=== PATIENT | male | born 1935 | race Caucasian/White ===

== ENCOUNTER 2017-07-27 07:36 | Emergency (ER) | payer MEDICARE ==
[~2017-07-27] VITALS: Ht 177.8 cm; Wt 95.2 kg
[~2017-07-27 07:36] MED LIST: ALBU3IS INH; ALBU90OI6; AMLO10 PO; AMLO5 PO; ASPI81CH PO; ATOR40TA PO; BUME2 PO; CARV25; CARV25 PO; CARV6.25 PO; CHOL10002 PO; CIPR500 PO; CLARITIN10 MG PO; CLON.1 PO; CLOP75 PO; CYAN1000 PO; DIAZ5 PO; FEBU40TA PO; FLUNISOLIDE MC; FURO40 PO; HYDCHL12.5 PO; LEVSOD50 PO; LORA1 PO; LOSA50 PO; ONDA8 PO; OXYACE5T PO; PARI1 PO; POTA10T PO; POTCHL10ER PO; Robaxin500 MG PO; TAMS.4ER PO; TIOT18; VALTURNA; VITAMIN D31000 UNIT PO; ZOLP5 PO
== END 2017-07-27 09:00 | disposition home or self-care (01) ==
LOC: ER 07:36
DX: L02.212 Cutaneous abscess of back [any part, except buttock and flank] (principal); Z88.5 Allergy status to narcotic agent; Z79.899 Other long term (current) drug therapy; Z79.82 Long term (current) use of aspirin; E03.9 Hypothyroidism, unspecified; I10 Essential (primary) hypertension; E78.5 Hyperlipidemia, unspecified
CPT/HCPCS: 10061; 99283

== ENCOUNTER 2017-07-28 21:01 | Emergency (ER) | payer MEDICARE ==
[~2017-07-28] VITALS: Ht 177.8 cm; Wt 95.2 kg
== END 2017-07-28 23:27 | disposition home or self-care (01) ==
LOC: ER 21:01
DX: Z48.817 Encounter for surgical aftercare following surgery on the skin and subcutaneous tissue (principal); Z88.5 Allergy status to narcotic agent; Z79.899 Other long term (current) drug therapy; Z79.82 Long term (current) use of aspirin; E03.9 Hypothyroidism, unspecified; I10 Essential (primary) hypertension; E78.5 Hyperlipidemia, unspecified
CPT/HCPCS: 99281

== ENCOUNTER 2017-08-28 11:46 | Emergency (ER) | payer MEDICARE ==
[~2017-08-28] VITALS: Ht 177.8 cm; Wt 95.2 kg
[2017-08-28] MEDS ORDERED: Keflex500 MG PO (12:28)
== END 2017-08-28 12:37 | disposition home or self-care (01) ==
LOC: ER 11:46
DX: L02.212 Cutaneous abscess of back [any part, except buttock and flank] (principal); L03.312 Cellulitis of back [any part except buttock and flank]; I25.10 Atherosclerotic heart disease of native coronary artery without angina pectoris; E03.9 Hypothyroidism, unspecified; I10 Essential (primary) hypertension; E78.5 Hyperlipidemia, unspecified; I25.2 Old myocardial infarction; Z88.5 Allergy status to narcotic agent; Z79.899 Other long term (current) drug therapy; Z79.01 Long term (current) use of anticoagulants; Z79.82 Long term (current) use of aspirin
CPT/HCPCS: 99283

== ENCOUNTER 2018-03-21 10:55 | Day surgery (SDC) | payer MEDICARE ==
[~2018-03-21] VITALS: Ht 172.7 cm; Wt 96.6 kg
[~2018-03-21 10:55] MED LIST changes: +ACET500 PO; -ALBU90OI6; +ALBU90OI6 INH; +DIPH50 PO; +FLONASE ALLERG9.9 ML; +Keflex500 MG PO; +LORATADINE PO; +METO100ER PO; +Uloric80 MG PO; +Ventolin5 MG/1 ML NEB; +XARELTO10 MG PO; +[UNRECOGNIZED DRUG - OTHER]
--- NOTE | 2018-03-21 12:21 | NUR ---
PT ARRIVED TO DAY SURGERY FOR OUTPATIENT UPPER ENDOSCOPY/COLONSCOPY. WHEN VITAL SIGNS TAKE, NOTED TO HAVE A FAST HR. SPOKE WITH DR ESCALANTE, ANESTHESIOLOGIST WHO WILL BE ASSISTING WITH PROCEDURE. PER DR ESCALANTE, DO A 12 LEAD EKG. EKG WAS OBTAINED, A-FIB WITH RVR. DR ESCALANTE NOTIFIED AND PER DR ESCALANTE WOULD LIKE TO CANCEL PROCEDURE. REQUESTED FOR DR CASTRO TO BE AWARE OF CANCELLATION. DR CASTRO CAME BY TO SPEAK TO PATIENT AND . DISCHARGE HOME.
== END 2018-03-21 18:09 | disposition home or self-care (01) ==
LOC: SURS 10:55 → ORSCMMR 10:55 → SURS 10:57 → ORSCMMR 12:30 → ORD 12:30 → ORSCMMR 18:09
DX: K92.1 Melena (principal); Z53.9 Procedure and treatment not carried out, unspecified reason; I10 Essential (primary) hypertension; I25.10 Atherosclerotic heart disease of native coronary artery without angina pectoris; I48.91 Unspecified atrial fibrillation; Z79.01 Long term (current) use of anticoagulants; Z79.899 Other long term (current) drug therapy; G47.33 Obstructive sleep apnea (adult) (pediatric)
CPT/HCPCS: 93005; 93010; J7120

== ENCOUNTER 2018-04-01 08:16 | Emergency (ER) | payer MEDICARE | END 2018-04-01 10:48 | disposition left against medical advice (07) | LOC: ER 08:16 | DX: Z53.21 Procedure and treatment not carried out due to patient leaving prior to being seen by health care provider (principal) ==

== ENCOUNTER 2018-04-18 08:18 | Inpatient (IN) | payer MEDICARE ==
[~2018-04-18] VITALS: Ht 177.8 cm; Wt 95.7 kg
[~2018-04-18 08:18] MED LIST changes: -ALBU90OI6 INH; -BUME2 PO; -FLONASE ALLERG9.9 ML; -LEVSOD50 PO; -POTA10T PO; -VITAMIN D31000 UNIT PO
[2018-04-18 09:00] LABS: Chloride (POC) 103 mmol/L (98-108); Creatinine (POC) 2.2 mg/dL (0.8-1.3); Glucose (ISTAT POC) 159 mg/dL (70-99); Hemoglobin (POC) 8.5 g/dL (13.5-17.5); Potassium (POC) 4.1 mmol/L (3.5-5.5); Sodium (POC) 140 mmol/L (135-148); Total CO2 (POC) 25 mmol/L (21-32)
[2018-04-18 09:15] LABS: BASOPHILS ABSOLUTE AUTO 0.06 K/mm3 (0.00-0.23); BASOPHILS PERCENT AUTO 1 % (0-2); EOSINOPHILS ABSOLUTE AUTO 0.15 K/mm3 (0.00-0.68); EOSINOPHILS PERCENT AUTO 2 % (0-6); Hematocrit 28.1 % (37.0-53.0); Hemoglobin 7.9 g/dL (13.5-17.5); IMMATURE GRAN ABSOLUTE AUTO 0.04 K/mm3 (0.00-0.10); IMMATURE GRAN PERCENT AUTO 0 % (0-1); LYMPHOCYTES ABSOLUTE AUTO 1.37 K/mm3 (0.84-5.20); LYMPHOCYTES PERCENT AUTO 14 % (21-46); MONOCYTES ABSOLUTE AUTO 0.92 K/mm3 (0.16-1.47); MONOCYTES PERCENT AUTO 9 % (4-13); Mean Corpuscular HGB 24.9 pg (26.0-34.0); Mean Corpuscular HGB Conc 28.1 g/dL (31.5-36.5); Mean Corpuscular Volume 89 fL (80-100); Mean Platelet Volume 9.5 fL (9.1-12.4); NEUTROPHILS ABSOLUTE AUTO 7.26 K/mm3 (1.96-9.15); NEUTROPHILS PERCENT AUTO 74 % (41-73); Platelet Count 326 K/mm3 (150-400); RDW Coefficient Variation 16.9 % (11.7-14.2); RDW Standard Deviation 55.2 fL (35.1-46.3); Red Blood Cell Count 3.17 M/mm3 (4.30-5.90)
[2018-04-18 09:28] LABS: International Normalized Ratio 1.19; Prothrombin Time Results 12.4 Sec (9.7-11.5)
[2018-04-18 09:35] LABS: Albumin, Blood 3.2 g/dL (3.4-5.0); Bilirubin, Total 0.5 mg/dL (0.1-1.0); Bun/Creatinine Ratio 17.5 (12.0-20.0); Calcium, Blood 8.2 mg/dL (8.5-10.1); Creatinine, Blood 2.06 mg/dL (0.60-1.20); Globulin, Blood 3.3 g/dL (2.2-4.0); Potassium, Blood 4.2 mmol/L (3.5-5.5); Total Protein, Blood 6.5 g/dL (6.4-8.2)
[2018-04-18] MEDS ORDERED: FINA5 PO ×2 (10:37→12:06)
[2018-04-18 11:24] LABS: Source, Urine Clean Catch
[2018-04-18 11:27] LABS: Bilirubin, Urine Neg (Neg); Blood, Urine Neg (Neg); Glucose Qualitative, Urine Neg (Neg); Ketones, Urine Neg (Neg); Leukocyte Esterase, Urine 1+ (Neg); Nitrite, Urine Neg (Neg); Protein, Urine 2+ (Neg); Specific Gravity, Urine 1.015 (1.003-1.022); Urobilinogen, Urine NORM (Normal)
[2018-04-18 11:42] LABS: Appearance, Urine Clear (Clear); Bacteria Rare /hpf; Color, Urine Yellow (P-Yellow); Red Blood Cells, Urine Not Seen /hpf (0-2); Squamous Epithelial Cells Not Seen /hpf (Few)
[2018-04-18] MEDS ORDERED: METO100ER PO (12:03)
[2018-04-18] MEDS ORDERED: ABAT250V (12:04)
[2018-04-18] MEDS ORDERED: TAMS.4ER PO (12:04)
[2018-04-18] MEDS ORDERED: XARELTO20 MG PO (12:05)
[2018-04-18] MEDS ORDERED: FEBU40TA PO (12:05)
[2018-04-18] MEDS ORDERED: LEVSOD50 PO (12:28)
[2018-04-18] MEDS ORDERED: CLOP75 PO (12:28)
[2018-04-18] MEDS ORDERED: VITAMIN D31000 UNIT PO (12:28)
[2018-04-18] MEDS ORDERED: LOSA50 PO (12:28)
[2018-04-18] MEDS ORDERED: POTA10T PO (12:28)
[2018-04-18] MEDS ORDERED: ATOR40TA PO (12:28)
[2018-04-18] MEDS ORDERED: FLONASE ALLERG9.9 ML (12:30)
[2018-04-18] MEDS ORDERED: BUME2 PO (12:30)
[2018-04-18] MEDS ORDERED: ALBU90OI6 INH (12:30)
[2018-04-18] MEDS ORDERED: Loratadine10 MG PO (12:32)
[2018-04-18] MEDS ORDERED: PANT40 PO (12:32)
--- NOTE | 2018-04-18 19:19 | NUR ---
Initial Visit: Palliative Care Consult for goals of care. Pt is A&Ox4 and denies pain at this time. He denies dyspnea at this time but reports SOB with exertion. Pt also denies anxiety and depression at thist time. Engaged in therapeutic conversation regarding goals of care. Pt reports that he lives at home with his . His adult children live in different states. Pt reports that he does not practice any particular pentecostal. Pt is orginally from [place]. He also served in the [employer]. He reports that he is independent at home but has been experiencing increased significant balance issues recently and has multiple falls recently. He also indicates that he does not understand his need for oxygen use and has reequired oxygen at home as well. Educated Pt on disease process with V/U made by Pt. Discussed options to have caregivers to come into home for extra support and Pt denies need. Discussed AD/POLST with Pt and he also denies need. Pt reports no concerns at this time. Will remain available
--- NOTE | 2018-04-18 19:36 | NUR ---
Arrival: Assumed care of pt at approx 1835. VSS. In no apparent sign of distress. Pt is A&Ox4. Calling appropriately and repositions self. Denies any pain. Pt pale and has dusky lips. Breathing e/u on 5L O2 NC. Lungs clear and pt denies any SOB or cough. Tele shows SIT in the 120's. Denies any CP. No obvious skin injuries noted. Pt denies any n/t or n/v but c/o some mild lower abd tenderness w/palpation. Pt NPO at this time. Report given to junior Packer.
[2018-04-18] MEDS ORDERED: CYAN500 PO (22:38)
--- NOTE | 2018-04-19 03:52 | NUR ---
PCU NIGHTSHIFT ASSUMED CARE OF PT APPROX 1900. PT A&O X4. ASSESSMENT COMPLETED. VITAL SIGNS STABLE, ALTHOUGH HEART RHYTHM A. FIB WITH HEART RATE IN 130'S-140'S AT THIS TIME PRN IV METROPOL GIVEN PER EMAR TO HELP WITH THIS. PT ABDOMEN MIL DISTENTION BUT SOFT. PT DENIES ANY DIZZINESS, LIGHTHEADEDNESS OR NAUSEA OR VOMITING. AT THIS TIME. RT LOW LOBE LUNG SOUNDS DIMINISHED, THE REST CLEAR. PT ON 4L OXYGEN VIA N.C. WITH SATS IN 90'S. BED IN LOW POSITION, BED ALARM ON, CALL LIGHT IN REACH AND PT DENIES ANY NEEDS AT THIS TIME
[2018-04-19 04:14] LABS: BASOPHILS ABSOLUTE AUTO 0.07 K/mm3 (0.00-0.23); BASOPHILS PERCENT AUTO 1 % (0-2); EOSINOPHILS ABSOLUTE AUTO 0.16 K/mm3 (0.00-0.68); EOSINOPHILS PERCENT AUTO 2 % (0-6); Hematocrit 23.9 % (37.0-53.0); Hemoglobin 6.9 g/dL (13.5-17.5); IMMATURE GRAN ABSOLUTE AUTO 0.02 K/mm3 (0.00-0.10); IMMATURE GRAN PERCENT AUTO 0 % (0-1); LYMPHOCYTES ABSOLUTE AUTO 1.21 K/mm3 (0.84-5.20); LYMPHOCYTES PERCENT AUTO 16 % (21-46); MONOCYTES PERCENT AUTO 11 % (4-13); Mean Corpuscular HGB 25.2 pg (26.0-34.0); Mean Corpuscular HGB Conc 28.9 g/dL (31.5-36.5); Mean Corpuscular Volume 87 fL (80-100); Mean Platelet Volume 9.4 fL (9.1-12.4); NEUTROPHILS ABSOLUTE AUTO 5.28 K/mm3 (1.96-9.15); NEUTROPHILS PERCENT AUTO 70 % (41-73); Platelet Count 234 K/mm3 (150-400); RDW Coefficient Variation 17.1 % (11.7-14.2); RDW Standard Deviation 54.2 fL (35.1-46.3); Red Blood Cell Count 2.74 M/mm3 (4.30-5.90); White Blood Cell Count 7.54 K/mm3 (4.00-11.30)
[2018-04-19 04:33] LABS: Albumin, Blood 2.7 g/dL (3.4-5.0); Bilirubin, Total 0.8 mg/dL (0.1-1.0); Bun/Creatinine Ratio 16.9 (12.0-20.0); Calcium, Blood 7.9 mg/dL (8.5-10.1); Creatinine, Blood 1.83 mg/dL (0.60-1.20); Globulin, Blood 2.8 g/dL (2.2-4.0); Potassium, Blood 3.9 mmol/L (3.5-5.5); Total Protein, Blood 5.5 g/dL (6.4-8.2)
--- NOTE | 2018-04-19 05:41 | NUR ---
NOTE MORNING LABS RECIEVED. PT HBG 6.9. NOTIFIED WOOD HEEL FLAP INSERTER PHYSICIAN. RECIEVED ORDERS TO TRANSFUSE ONE UNIT PRB. FOLLOWED PROTOCOL FOR STARTING PRB'S. ASSESSMENT PT. VITAL SIGNS STABLE. HEART RATE AVERAGING 130'S LUNG SOUNDS UNCHANGED FROM START OF SHIFT. WILL CONTINUE TO MONITOR PER PROTOCOL.
--- NOTE | 2018-04-19 05:55 | NUR ---
SHIFT SUMMARY PT PLEASANT, COOPERATIVE, AND USES CALL LIGHT APPROPRIATELY. PT REMAINS A&O X4. VITAL SIGNS STABLE. ALTHOUGH HEART RHYTHM REMAINS A. FIB. WITH HEART RATE RANGING FROM 100'S-140'S. PRN IV METROPOLOL GIVEN FOR HEART RATE AVERAGING ABOVE 120'S PER ORDERS. GAVE TWO DOSE THIS SHIFT. EACH TIME LOWERED PT HEART RATE TO AVERAGING 100'S-120'S. ASSESSMENT FINDINGS REMAIN UNCHANGED FROM START OF SHIFT. 4L OXYGEN VIA N.C. IN PLACE WITH SATS IN 90'S. PT REPORTED HE WAS UP TO BATHROOM WITH ASSISTANCE FROM PEER STAFF AND TOLERATED WELL. NO DIZZINESS OR LIGHTHEADEDNESS WITH THIS. BEGUN PRBC'S APPROX. 0538. MONITOR PT PER PROTOCOL. VITAL SIGNS REMAIN STABLE. BED IN LOW POSITION, CALL LIGHT IN REACH AND PT DENIES ANY NEEDS AT THIS TIME. WILL CONTINUE TO MONITOR UNTIL HANDOFF TO JAY MINER.
[2018-04-19 10:36] LABS: Hematocrit 27.5 % (37.0-53.0); Hemoglobin 8.2 g/dL (13.5-17.5); Mean Corpuscular HGB 25.4 pg (26.0-34.0); Mean Corpuscular HGB Conc 29.8 g/dL (31.5-36.5); Mean Corpuscular Volume 85 fL (80-100); Mean Platelet Volume 9.3 fL (9.1-12.4); Platelet Count 243 K/mm3 (150-400); RDW Coefficient Variation 16.5 % (11.7-14.2); RDW Standard Deviation 51.9 fL (35.1-46.3); Red Blood Cell Count 3.23 M/mm3 (4.30-5.90); White Blood Cell Count 6.97 K/mm3 (4.00-11.30)
--- NOTE | 2018-04-19 13:52 | NUR ---
History, Chart, Medications and Allergies reviewed before start of procedure. Patient confirms NPO status and agrees with scheduled surgery.
--- NOTE | 2018-04-19 15:13 | NUR ---
pt returned to room after egd, report was one clip, pt awake a/ox3, able to drink without diff, vs stable, pt has no complaints. call light in reach. continues on cardizem gtt, will continue to monitor.
--- NOTE | 2018-04-19 17:49 | NUR ---
pt vs stable. sats are 94% on 4 liters 02 via n/c, heart rate in the 80's, call to Dr. Jean, he ordered oral cardizem at 60mg tid. no furhter changes this shift. call light in reach.
--- NOTE | 2018-04-19 18:41 | NUR ---
DR. ARNDT WAS IN TO SEE PT. HE WILL DO A COLONOSCOPY TOMORROW. WILL START CLEAN OUT TONIGHT. PT STATES HE HAS DONE THIS BEFORE, AND KNOWS WHAT TO EXPECT. CALL LIGHT IN REACH.
[2018-04-20 04:06] LABS: BASOPHILS ABSOLUTE AUTO 0.04 K/mm3 (0.00-0.23); BASOPHILS PERCENT AUTO 1 % (0-2); EOSINOPHILS ABSOLUTE AUTO 0.16 K/mm3 (0.00-0.68); EOSINOPHILS PERCENT AUTO 2 % (0-6); Hematocrit 27.2 % (37.0-53.0); IMMATURE GRAN ABSOLUTE AUTO 0.02 K/mm3 (0.00-0.10); IMMATURE GRAN PERCENT AUTO 0 % (0-1); LYMPHOCYTES ABSOLUTE AUTO 1.17 K/mm3 (0.84-5.20); LYMPHOCYTES PERCENT AUTO 16 % (21-46); MONOCYTES ABSOLUTE AUTO 0.89 K/mm3 (0.16-1.47); MONOCYTES PERCENT AUTO 12 % (4-13); Mean Corpuscular HGB 25.2 pg (26.0-34.0); Mean Corpuscular HGB Conc 29.4 g/dL (31.5-36.5); Mean Corpuscular Volume 86 fL (80-100); Mean Platelet Volume 9.4 fL (9.1-12.4); NEUTROPHILS ABSOLUTE AUTO 5.23 K/mm3 (1.96-9.15); NEUTROPHILS PERCENT AUTO 70 % (41-73); NRBC ABSOLUTE 0.02 K/mm3 (0.00-0.02); NRBC Auto 0.3 /100 WBC (0.0-0.2); Platelet Count 247 K/mm3 (150-400); RDW Coefficient Variation 16.7 % (11.7-14.2); RDW Standard Deviation 52.4 fL (35.1-46.3); Red Blood Cell Count 3.17 M/mm3 (4.30-5.90); White Blood Cell Count 7.51 K/mm3 (4.00-11.30)
[2018-04-20 04:24] LABS: Bun/Creatinine Ratio 14.9 (12.0-20.0); Calcium, Blood 8.1 mg/dL (8.5-10.1); Creatinine, Blood 1.75 mg/dL (0.60-1.20); Potassium, Blood 3.5 mmol/L (3.5-5.5)
--- NOTE | 2018-04-20 06:25 | NUR ---
SHIFT SUMMARY PT HAS BEEN ALERT AND ORIENTED X 3 THROUGHOUT SHIFT. HE HAS BEEN PLEASANT AND COOPERATIVE WITH VITALS AND ASSESSMENTS. PT DID REFUSE TO CONTINUE DRINKING HIS GOLYTELY AT APPROX 0300 BUT SAID HE WOULD RESUME AT 0600. HE HAS BEEN BEING PREPPED SINCE LAST NIGHT AND HIS STOOL HAS CLEARED SOME AND REMAINS LIQUID AT THIS TIME. PT HAS BEEN INDEPENDENT IN THE ROOM AND HIS GAIT WAS OBSERVED TO BE STEADY AND WELL BALANCED. PT DENIED ANY UNMET NEEDS, SLEPT WELL AFTER HE PAUSED HIS GOLYTELY AND WAS ABLE TO APPROPRIATELY USE HIS CALL LIGHT TO MAKE NEEDS KNOWN. PT HAS NON SLIP SOCKS ON FOR SAFETY AND HIS BED HAS BEEN IN THE LOWEST POSITION. HE HAS TOLERATED GO LYTELY DURING THE SHIFT. NO ACUTE CHNAGES HAVE BEEN OBSERVED TO PATIENT VITALS OR LOC. PT WILL CONTINUE TO BE MONITORED UNTIL HANDOFF TO DAYSHIFT RN.
--- NOTE | 2018-04-20 14:12 | NUR ---
PT TAKEN TO DAY SURGERY FOR PROCEDURE. WILL AWAIT RETURN.
--- NOTE | 2018-04-20 14:17 | NUR ---
PT TRANSPORTED TO [facility]. AGREES WITH PLANNED PROCEDURE. LUNG SOUNDS CLEAR.
--- NOTE | 2018-04-20 16:00 | NUR ---
PT RETURNED FROM DAY SURGERY. REPORT RECIEVED FROM CRISTY MINER. PT ABLE TO AMBULATE TO BED. WILL CONTINUE TO MONITOR CLOSELY.
--- NOTE | 2018-04-20 18:35 | NUR ---
SHIFT SUMMARY PT ALERT AND ORIENTED. VS STABLE. 02 SATS HAVE BEEN >90% ON RA. PT HAD COLONOSCOPY THIS SHIFT. VS STABLE AFTER RECOVERY. PT SITTING UP EATING DINNER. NO BM SINCE COLONOSCOPY. PT ABLE TO AMBULATE INDEPENDENTLY TO BATHROOM NEEDED. AT THE BEDSIDE. WILL CONTINUE TO MONITOR AND REPORT TO ONCOMING RN. CALL LIGHT IN REACH.
--- NOTE | 2018-04-20 19:15 | NUR ---
PM NOTE. ASSUMED CARE OF PT APROX 1900, PT IS A&Ox4 AND IND IN THE ROOM. PT WAS ADMITTED DUE TO GI BLEED, HE HAD HIS COLONOSCOPY TODAY AND HAS NO BLACK/TARRY STOOLS, GI/RECTAL BLEEDING, N/V OR SOB. PT IS CURRENTLY ON RA W/STATS AT 90%. TELE INTACT, AFIB IN THE 80'S PER HEALTHCARE ANALYST, PT'S BP 118/77, NO EDEMA NOTED ON ASSESSMENT. PT'S L/S CLEAR T/O DIM IN THE BASES. BT PRESENT AND HYPOACTIVE, ABD IS SOFT AND NONTENDER TO PALP. PT IS HOPING TO D/C IN THE AM. CALL LIGHT IN REACH, BED IS LOCKED AND LOW WILL CONTINUE TO MONITOR.
[2018-04-21 03:46] LABS: BASOPHILS ABSOLUTE AUTO 0.06 K/mm3 (0.00-0.23); BASOPHILS PERCENT AUTO 1 % (0-2); EOSINOPHILS ABSOLUTE AUTO 0.14 K/mm3 (0.00-0.68); EOSINOPHILS PERCENT AUTO 2 % (0-6); Hematocrit 26.7 % (37.0-53.0); Hemoglobin 7.8 g/dL (13.5-17.5); IMMATURE GRAN ABSOLUTE AUTO 0.01 K/mm3 (0.00-0.10); IMMATURE GRAN PERCENT AUTO 0 % (0-1); LYMPHOCYTES ABSOLUTE AUTO 1.39 K/mm3 (0.84-5.20); LYMPHOCYTES PERCENT AUTO 21 % (21-46); MONOCYTES ABSOLUTE AUTO 0.74 K/mm3 (0.16-1.47); MONOCYTES PERCENT AUTO 11 % (4-13); Mean Corpuscular HGB 25.2 pg (26.0-34.0); Mean Corpuscular HGB Conc 29.2 g/dL (31.5-36.5); Mean Corpuscular Volume 86 fL (80-100); Mean Platelet Volume 9.4 fL (9.1-12.4); NEUTROPHILS ABSOLUTE AUTO 4.44 K/mm3 (1.96-9.15); NEUTROPHILS PERCENT AUTO 66 % (41-73); Platelet Count 232 K/mm3 (150-400); RDW Coefficient Variation 17.2 % (11.7-14.2); RDW Standard Deviation 53.7 fL (35.1-46.3); Red Blood Cell Count 3.09 M/mm3 (4.30-5.90); White Blood Cell Count 6.78 K/mm3 (4.00-11.30)
[2018-04-21 04:06] LABS: Albumin, Blood 2.9 g/dL (3.4-5.0); Bilirubin, Total 0.8 mg/dL (0.1-1.0); Bun/Creatinine Ratio 9.8 (12.0-20.0); Creatinine, Blood 1.84 mg/dL (0.60-1.20); Globulin, Blood 2.8 g/dL (2.2-4.0); Potassium, Blood 3.2 mmol/L (3.5-5.5); Total Protein, Blood 5.7 g/dL (6.4-8.2)
--- NOTE | 2018-04-21 05:49 | NUR ---
SHIFT SUMMARY. NO ACUTE CHANGES NOTED THIS SHIFT. PT'S VS HAVE BEEN STABLE T/O SHIFT. PT DENIES ANY CHEST PAIN/PRESSURE, N/V OR SOB. PT HAS BEEN IND TO THE BATHRROM AND IN THE ROOM. PT IS VERY HOPFUL TO D/C HOME THIS AM. CALL LIGHT IN REACH, BED IS LOCKED AND LOW WILL CONTINUE TO MONITOR UNTIL REPORT IS GIVEN TO ONCOMING RN.
[2018-04-21] MEDS ORDERED: DILT60 PO (09:47)
--- NOTE | 2018-04-21 10:32 | NUR ---
04/21/18 1032 Yves Miner Patient to ENDO 1History, Chart, Medications and Allergies reviewed before start of procedure.MONITOR INTACT WITH CONTINUOUS PULSE OXIMETRY AND INTERMITTENT BP.O2 VIA N/C INTACT THROUGHOUT SEDATION/PROCEDURE.See Anesthesia record PER DR DIETZ
--- NOTE | 2018-04-21 13:25 | NUR ---
PT ALERT AND ORIENTED. TRANSFUSION COMPLETE. VS STABLE. ORDERS FOR DISCHARGE. DISCHARGE INSTRUCTIONS GIVEN TO PT AND . ALL QUESTIONS ANSWERED. EDUCATION PROVIDED ON NEW MEDICATION. IVS REMOVED AND INTACT. PT TAKEN OUT BY WHEELCHAIR.
== END 2018-04-21 13:20 | disposition home or self-care (01) | DRG 378 ==
LOC: ER 08:18 → PCU 08:19 → ERHOLD 08:19 → PCU 18:23
PROVIDERS: Emergency Medicine; Internal Medicine Gastroenterology; ADMIT Family Medicine
PROC: 30233N1 Transfusion of Nonautologous Red Blood Cells into Peripheral Vein, Percutaneous Approach (ICD-10-PCS; 2018-04-19)
PROC: 0W3P8ZZ Control Bleeding in Gastrointestinal Tract, Via Natural or Artificial Opening Endoscopic (ICD-10-PCS; principal; 2018-04-19 14:00)
PROC: 0DBL8ZX Excision of Transverse Colon, Via Natural or Artificial Opening Endoscopic, Diagnostic (ICD-10-PCS; 2018-04-20 14:30)
DX: K92.2 Gastrointestinal hemorrhage, unspecified (principal); I13.0 Hypertensive heart and chronic kidney disease with heart failure and stage 1 through stage 4 chronic kidney disease, or unspecified chronic kidney disease; I50.32 Chronic diastolic (congestive) heart failure; I25.10 Atherosclerotic heart disease of native coronary artery without angina pectoris; I25.2 Old myocardial infarction; E03.9 Hypothyroidism, unspecified; E78.5 Hyperlipidemia, unspecified; N40.0 Benign prostatic hyperplasia without lower urinary tract symptoms; Z90.79 Acquired absence of other genital organ(s); M10.9 Gout, unspecified; Z87.891 Personal history of nicotine dependence; N18.3 Chronic kidney disease, stage 3 (moderate); I48.2 Chronic atrial fibrillation; J44.9 Chronic obstructive pulmonary disease, unspecified; Z99.81 Dependence on supplemental oxygen; I25.5 Ischemic cardiomyopathy; G47.33 Obstructive sleep apnea (adult) (pediatric); Z85.51 Personal history of malignant neoplasm of bladder; K44.9 Diaphragmatic hernia without obstruction or gangrene; D12.3 Benign neoplasm of transverse colon; K64.8 Other hemorrhoids; R04.0 Epistaxis
CPT/HCPCS: 36415; 36430; 80047; 80048; 80053; 81001; 83880; 84484; 85014; 85025; 85027; 85610; 86850; 86900; 86901; 86923; 88305; 93005; 93010; 94640; 94760; 96361; 96374; 96375; 96376; 99285-25; C9113; G0378; J7030; J7120; P9016

== ENCOUNTER 2018-05-10 04:16 | Emergency (ER) | payer MEDICARE ==
[~2018-05-10] VITALS: Ht 177.8 cm; Wt 95.2 kg
[~2018-05-10 04:16] MED LIST changes: +ABAT250V; +ALBU90OI6 INH; +BUME2 PO; +CYAN500 PO; +DILT60 PO; +FINA5 PO; +FLONASE ALLERG9.9 ML; +LEVSOD50 PO; +Loratadine10 MG PO; +PANT40 PO; +POTA10T PO; +VITAMIN D31000 UNIT PO; +XARELTO20 MG PO
[2018-05-10] MEDS ORDERED: CEPH500 PO (05:57)
== END 2018-05-10 06:22 | disposition home or self-care (01) ==
LOC: ER 04:16
DX: J02.9 Acute pharyngitis, unspecified (principal); Z79.899 Other long term (current) drug therapy; Z87.891 Personal history of nicotine dependence
CPT/HCPCS: 87081; 87430; 99283; J1100

== ENCOUNTER 2021-03-08 12:21 | Emergency (ER) | payer OTHER ==
[~2021-03-08] VITALS: Ht 177.8 cm; Wt 99.8 kg
[~2021-03-08 12:21] MED LIST changes: +CEPH500 PO
[2021-03-08] MEDS ORDERED: METSALMENC TOP (15:42)
[2021-03-08] MEDS ORDERED: LIDO700A20 TOP (15:42)
[2021-03-08] MEDS ORDERED: OXYC5 PO (15:42)
== END 2021-03-08 15:40 | disposition home or self-care (01) ==
LOC: ER 12:21
DX: S09.90XA Unspecified injury of head, initial encounter (principal); S22.32XA Fracture of one rib, left side, initial encounter for closed fracture; I25.2 Old myocardial infarction; E03.9 Hypothyroidism, unspecified; J44.9 Chronic obstructive pulmonary disease, unspecified; E78.5 Hyperlipidemia, unspecified; Z87.891 Personal history of nicotine dependence; Z79.899 Other long term (current) drug therapy; W19.XXXA Unspecified fall, initial encounter
CPT/HCPCS: 70450; 71101; 73000; 99284-25; A9270

== ENCOUNTER 2021-05-01 11:02 | Emergency (ER) | payer MEDICARE, OTHER ==
[~2021-05-01] VITALS: Ht 177.8 cm; Wt 95.2 kg
[~2021-05-01 11:02] MED LIST changes: +LIDO700A20 TOP; +METSALMENC TOP; +OXYC5 PO
[2021-05-01 11:40] LABS: BASOPHILS ABSOLUTE AUTO 0.06 K/mm3 (0.00-0.23); BASOPHILS PERCENT AUTO 1 % (0-2); EOSINOPHILS ABSOLUTE AUTO 0.16 K/mm3 (0.00-0.68); EOSINOPHILS PERCENT AUTO 2 % (0-6); Hematocrit 40.8 % (37.0-53.0); Hemoglobin 13.3 g/dL (13.5-17.5); IMMATURE GRAN ABSOLUTE AUTO 0.04 K/mm3 (0.00-0.10); IMMATURE GRAN PERCENT AUTO 1 % (0-1); LYMPHOCYTES ABSOLUTE AUTO 1.36 K/mm3 (0.84-5.20); LYMPHOCYTES PERCENT AUTO 17 % (21-46); MONOCYTES ABSOLUTE AUTO 0.68 K/mm3 (0.16-1.47); MONOCYTES PERCENT AUTO 8 % (4-13); Mean Corpuscular HGB 31.6 pg (26.0-34.0); Mean Corpuscular HGB Conc 32.6 g/dL (31.5-36.5); Mean Corpuscular Volume 97 fL (80-100); Mean Platelet Volume 9.7 fL (9.1-12.4); NEUTROPHILS ABSOLUTE AUTO 5.84 K/mm3 (1.96-9.15); NEUTROPHILS PERCENT AUTO 72 % (41-73); Platelet Count 229 K/mm3 (150-400); RDW Coefficient Variation 14.3 % (11.7-14.2); RDW Standard Deviation 51.3 fL (35.1-46.3); Red Blood Cell Count 4.21 M/mm3 (4.30-5.90); White Blood Cell Count 8.14 K/mm3 (4.00-11.30)
[2021-05-01 12:01] LABS: Albumin, Blood 2.9 g/dL (3.4-5.0); Albumin/Globulin Ratio 0.8 (0.8-1.8); Bilirubin, Total 0.7 mg/dL (0.1-1.0); Bun/Creatinine Ratio 12.6 (12.0-20.0); Calcium, Blood 8.7 mg/dL (8.5-10.1); Creatinine, Blood 2.23 mg/dL (0.60-1.20); Globulin, Blood 3.6 g/dL (2.2-4.0); Potassium, Blood 4.3 mmol/L (3.5-5.5); Total Protein, Blood 6.5 g/dL (6.4-8.2)
== END 2021-05-01 14:49 | disposition home or self-care (01) ==
LOC: ER 11:02
PROVIDERS: Emergency Medicine
DX: M54.50 Low back pain, unspecified (principal); M54.2 Cervicalgia; W18.30XA Fall on same level, unspecified, initial encounter; I25.10 Atherosclerotic heart disease of native coronary artery without angina pectoris; I25.2 Old myocardial infarction; E03.9 Hypothyroidism, unspecified; I12.9 Hypertensive chronic kidney disease with stage 1 through stage 4 chronic kidney disease, or unspecified chronic kidney disease; I48.91 Unspecified atrial fibrillation; N18.9 Chronic kidney disease, unspecified; J44.9 Chronic obstructive pulmonary disease, unspecified; M10.9 Gout, unspecified; E78.5 Hyperlipidemia, unspecified; Z79.899 Other long term (current) drug therapy; Z87.891 Personal history of nicotine dependence
CPT/HCPCS: 70450; 71045; 72125; 72131; 80053; 85025; 93005; 93010; 96374; 99285-25; A9270; J2765; J7030

== ENCOUNTER 2021-05-05 19:40 | Inpatient (IN) | payer OTHER, MEDICARE ==
[~2021-05-05] VITALS: Ht 177.8 cm; Wt 95.2 kg
[~2021-05-05 19:40] MED LIST changes: +METO50ER PO
[2021-05-06 00:50] LABS: BASOPHILS ABSOLUTE AUTO 0.04 K/mm3 (0.00-0.23); BASOPHILS PERCENT AUTO 1 % (0-2); EOSINOPHILS PERCENT AUTO 1 % (0-6); Hematocrit 37.6 % (37.0-53.0); Hemoglobin 12.3 g/dL (13.5-17.5); IMMATURE GRAN ABSOLUTE AUTO 0.04 K/mm3 (0.00-0.10); IMMATURE GRAN PERCENT AUTO 1 % (0-1); LYMPHOCYTES PERCENT AUTO 10 % (21-46); MONOCYTES ABSOLUTE AUTO 0.78 K/mm3 (0.16-1.47); MONOCYTES PERCENT AUTO 9 % (4-13); Mean Corpuscular HGB Conc 32.7 g/dL (31.5-36.5); Mean Corpuscular Volume 98 fL (80-100); Mean Platelet Volume 9.7 fL (9.1-12.4); NEUTROPHILS ABSOLUTE AUTO 6.86 K/mm3 (1.96-9.15); NEUTROPHILS PERCENT AUTO 79 % (41-73); Platelet Count 209 K/mm3 (150-400); RDW Coefficient Variation 14.1 % (11.7-14.2); RDW Standard Deviation 50.7 fL (35.1-46.3); Red Blood Cell Count 3.84 M/mm3 (4.30-5.90); White Blood Cell Count 8.72 K/mm3 (4.00-11.30)
[2021-05-06 01:05] LABS: Bun/Creatinine Ratio 14.1 (12.0-20.0); Calcium, Blood 8.3 mg/dL (8.5-10.1); Creatinine, Blood 1.99 mg/dL (0.60-1.20); Potassium, Blood 4.2 mmol/L (3.5-5.5)
[2021-05-06 04:54] LABS: Source, Urine Foley catheter
[2021-05-06 04:59] LABS: Bilirubin, Urine Neg (Neg); Blood, Urine 4+ (Neg); Glucose Qualitative, Urine Neg (Neg); Ketones, Urine Neg (Neg); Leukocyte Esterase, Urine Neg (Neg); Nitrite, Urine Neg (Neg); Protein, Urine 3+ (Neg); Urobilinogen, Urine NORM (Normal)
[2021-05-06 05:31] LABS: Appearance, Urine Hazy (Clear); Bacteria Not Seen /hpf; Color, Urine Yellow (P-Yellow); Squamous Epithelial Cells Not Seen /hpf (Few); White Blood Cells, Urine Not Seen /hpf (0-5)
--- NOTE | 2021-05-06 05:41 | NUR ---
End of shift summary Overnight with sugars trending down, 0330 83, 0400 71, 0500 69, gave juice and pudding,IV @ 75 of D10, VSS on 2L NC (came up on 4L from ED), pain in back with any movement, states he has chronic back pain. When he arrived at 0330 he was lethargic but currently more alert but confused, watson catheter in place draining well. will continue to monitor
--- NOTE | 2021-05-06 09:06 | NUR ---
MD NOTIFICATION: Notified regarding HTN this AM. Instructed to keep IVF. MD to evaluate home medication list and place orders. Will continue to monitor.
--- NOTE | 2021-05-06 16:09 | NUR ---
Shift summary: Pt remains A&Ox3- disoriented to situation. VSS with exception to AM BP, MD restarted home meds. Afebrile. No c/o pain. FC maintained, AUO. No BM. Tolerating current diet. Q2hr blood glucose checks maintained along with IVF, encouraged adequate PO intake. Possible d/c home tomorrow if blood glucose stabilizes. Frequent rounds to ensure pt safety. Pt encouraged to reposition q2hrs and pressure points offloaded to prevent pressure ulcers, pt verbalized understanding. Pt in no apparent distress at this time. Will continue to monitor until transfer of care to oncoming RN.
--- NOTE | 2021-05-06 21:00 | NUR ---
CARE ASSUMPTION PT IS AXO X3 WITH SOME SLIGHT CONFUSION ABOUT HIS CURRENT SITUATION. PT DOES NOT KNOW WHAT MEDICATIONS HE TAKES HE STATES THAT HIS MANAGES ALL OF HIS MEDS. PT REPORTS FALLING MULTIPLE TIMES EVERY MONTH SO BED ALARM ON AND BED IN LOWEST POSITION. PT HAS HAD TWO CBG'S >110 SO D10 FLUIDS ON STANDBY PER ORDER.
[2021-05-07 04:36] LABS: Bun/Creatinine Ratio 12.8 (12.0-20.0); Calcium, Blood 8.7 mg/dL (8.5-10.1); Creatinine, Blood 1.79 mg/dL (0.60-1.20); Potassium, Blood 4.2 mmol/L (3.5-5.5)
--- NOTE | 2021-05-07 06:05 | NUR ---
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 PT DID NOT SLEEP AT ALL THIS SHIFT UP ALL NIGHT PULLING ON HIS TELE LEADS AND BANERJEE CATHETER. TELE SHOWED AFIB 70'S-80'S FOR THE FIRST PART OF THE SHIFT HOWEVER, THE PT STOOD UP TO USE THE BSC AND HIS HR RAPIDLY SHOT UP TO THE 160'S. AFTER THE SECOND TIME THIS HAPPENED HIS HR REMAINED AFIB 120'S-150'S SO PROVIDER CONTACTED AND HIS AM DOSE OF CARDIZEM WAS GIVEN EARLY. D10 DRIP TURNED OFF AT 2200 FOLLOWING SECOND CBG >110 AND HIS CBG'S REMAINED STABLE FOR THE REST OF THE SHIFT. WILL REPORT TO ONCFELISHA MINER.
--- NOTE | 2021-05-07 10:16 | NUR ---
TRANSFER TO MEDICAL 345: Report called to KRISTOFER Ledbetter. Pt in no apparent distress at this time. Will continue to monitor until transfer of care.
--- NOTE | 2021-05-07 15:30 | NUR ---
1040 PT TRANSFET FROM PCU 2 TO ROOM 345, BED TO BED TRANSFER. PT SEVERELY CONFUSED, IN LAUREN VEST. ASKING FOR A KNIFE TO CUT HIMSELF OUT OF BED. BE HAS SEVERE AGGITATION. ATTEMPTS TO CALM INEFFECTEVT. AT BEDSIDE CONCERNED WITH HUSBANDS CONDITION. STATES HE IS CONFUSED BUT NOTHING LIKE NOW. ORIENTED TO ROOM SET UP, CALL LIGHT AND SAFETY, BED ALARM SET AND LAUREN SECURE. PT SCOOTING TO EDGE OF BED.
--- NOTE | 2021-05-07 15:48 | NUR ---
1140- CALL TO DR BAKER TO NOTIFY OF SEVERE AGITATION AND INSESSANT ATTEMPTS TO GET OOB AND PULLING AT RESTRAINTS, OFF THE WALL DELUSIONAL COMMENTS. ORDER FOR SEROQUIL.
--- NOTE | 2021-05-07 15:49 | NUR ---
1440- CALL TO DR BAKER, NOTIFIED THAT PT CONTINUES WITH AGITATION AND AGRESSION, STRUCK STAFF BODY KICKING HER IN THE HIP WHEN TRYING TO REPOSITION BACK INTO BED AFTER LEGS THROWN OFF BED. ORDER FOR IM BENEDRYL, ATIVAN AND HALDOL.
--- NOTE | 2021-05-08 05:09 | NUR ---
SHIFT SUMMARY 85 YR M ADMITTED ON 05/06/21 FOR HYPOGLYCEMIA. FULL CODE. BLOOD SUGAR ISSUE HAS BEEN RESOLVED, BUT PT IS VERY CONFUSED AND IS POSSIBLY HALLUCINATING. HE CALLS OUT RNDOMLY AND CURSES LOUDLY. HE IS UPSET THAT HE IS IN A LAUREN VEST AND CONTINUALLY DEMANDS FOR IT TO BE TAKEN OFF. IT IS THIS NURSES OPINION THAT THE LAUREN VEST IS KEEPING THE PT FROM UNINTENTIONALLY HARMING HIMSELF. PT WAS MEDICATED PER EMAR BUT GOT NO MORE THAN A FEW HOURS SLEEP ON THIS SHIFT. STRAIGHT CATH PRODUCED 825 ML OF URINE.
[2021-05-08 08:08] LABS: BASOPHILS ABSOLUTE AUTO 0.06 K/mm3 (0.00-0.23); BASOPHILS PERCENT AUTO 1 % (0-2); EOSINOPHILS ABSOLUTE AUTO 0.08 K/mm3 (0.00-0.68); EOSINOPHILS PERCENT AUTO 1 % (0-6); Hematocrit 38.8 % (37.0-53.0); IMMATURE GRAN ABSOLUTE AUTO 0.03 K/mm3 (0.00-0.10); IMMATURE GRAN PERCENT AUTO 0 % (0-1); LYMPHOCYTES ABSOLUTE AUTO 1.04 K/mm3 (0.84-5.20); LYMPHOCYTES PERCENT AUTO 13 % (21-46); MONOCYTES ABSOLUTE AUTO 0.99 K/mm3 (0.16-1.47); MONOCYTES PERCENT AUTO 12 % (4-13); Mean Corpuscular HGB 31.9 pg (26.0-34.0); Mean Corpuscular HGB Conc 33.5 g/dL (31.5-36.5); Mean Corpuscular Volume 95 fL (80-100); Mean Platelet Volume 9.9 fL (9.1-12.4); NEUTROPHILS ABSOLUTE AUTO 6.14 K/mm3 (1.96-9.15); NEUTROPHILS PERCENT AUTO 74 % (41-73); Platelet Count 196 K/mm3 (150-400); RDW Coefficient Variation 14.1 % (11.7-14.2); RDW Standard Deviation 49.2 fL (35.1-46.3); Red Blood Cell Count 4.08 M/mm3 (4.30-5.90); White Blood Cell Count 8.34 K/mm3 (4.00-11.30)
[2021-05-08 08:48] LABS: Calcium, Blood 8.9 mg/dL (8.5-10.1); Creatinine, Blood 1.84 mg/dL (0.60-1.20); Potassium, Blood 4.1 mmol/L (3.5-5.5)
[2021-05-08 10:34] LABS: Source, Urine Foley catheter
[2021-05-08 10:47] LABS: Appearance, Urine Clear (Clear); Bilirubin, Urine Neg (Neg); Blood, Urine 5+ (Neg); Color, Urine Yellow (P-Yellow); Glucose Qualitative, Urine Neg (Neg); Ketones, Urine Neg (Neg); Leukocyte Esterase, Urine Neg (Neg); Nitrite, Urine Neg (Neg); Protein, Urine 4+ (Neg); Specific Gravity, Urine 1.015 (1.003-1.022); Urobilinogen, Urine NORM (Normal)
[2021-05-08 11:11] LABS: Red Blood Cells, Urine 25-50 /hpf (0-2); White Blood Cells, Urine 0-2 /hpf (0-5)
[2021-05-08 11:12] LABS: Bacteria Rare /hpf; Renal Epithelial Rare /hpf (0-Rare); Squamous Epithelial Cells Rare /hpf (Few)
--- NOTE | 2021-05-08 11:46 | NUR ---
TELEPHONE REPORT RECEIVED FROM jerica ESPINOSA.
--- NOTE | 2021-05-08 12:52 | NUR ---
Pt arrived from medical floor, via bed. He is roughly oriented to place (hospital, unsure of city) but states the date is April,. Able to follow directions and cooperate with care. He is complaining of intermittent sharp chest pain, pointing to the left upper chest. AFter administration of IV cardizem he said that it was gone and has not complained of it since. heart rate is now 123 bpm, atrial fibrillation. When he first arrived from medical floor, heart rate was 140-150 bpm afib. Blood pressure stable. Pt arrived with one hearing aid in the left ear, none in the right. States that the upper teeth are dentures, and the lower are his own teeth. Muse catheter is draning yellow urine. He is now sitting up in bed, eating lunch.
--- NOTE | 2021-05-08 15:45 | NUR ---
Pt c/o needing to have BM. Passed gas, but no stool. He states that his abdomen feels "strange" and "tight". He does have abdominal distention, but soft. he is feeling dizzy and nauseated.
--- NOTE | 2021-05-08 15:54 | NUR ---
Call to Dr. Castle regarding pt's condition. Per telemetry, atrial fibrillation is ranging 113-130 bpm, and blood pressure is stable. New orders received for bowel care. Pt was given ODT zofran for nasea.
--- NOTE | 2021-05-08 16:02 | NUR ---
Cardizem gtt titrated up to 15 mg/hour. Miralax administered. Heart rate averaging 125 bpm. blood pressure stable.
--- NOTE | 2021-05-08 19:21 | NUR ---
Pt had a good appetite for dinner this evening; the nausea and abdominal discomfort apparently resolved, and he said that he felt better. No additional episodes of chest pain. Heart rate has decreased to 90 bpm at time of bedside report, so cardizem was titrated down to 5 by the oncoming RN for overnight babysitter. Pt's blood pressure has remained stable.
--- NOTE | 2021-05-09 06:22 | NUR ---
SHIFT SUMMARY [id number] PT SLEPT POORLY OVERNIGHT, ORIENTED X4 AT BEGINNING OF SHIFT AND BEGAN TO HAVE VISUAL HALLUCINATIONS REQUIRING REORIENTATION THE NIGHT WENT ON. SOFT LIMB RESTRAINTS PLACED ON BILATERAL UE D/T PT PULLING OUT IVS, TAKING OFF NASAL CANNULA AND TELEMETRY. AFIB 90S-170S ON TELEMETRY, CARDIZEM GTT TITRATED MULTIPLE TIMES OVERNIGHT TO REACH GOAL HR (SEE EMAR FOR DETAILS). ON 4L NC, NO COMPLAINTS OF PAIN, ABDOMEN DISTENDED W/HYPOACTIVE BOWEL SOUNDS. BANERJEE CATHETER IN PLACE DRAINING CLEAR YELLOW URINE. CALL LIGHT WITHIN REACH OF PT, EDUCATED ON CRITERIA FOR RELEASE OF RESTRAINTS. WILL CONTINUE TO MONITOR AND PASS ON TO DAY RN.
--- NOTE | 2021-05-09 07:21 | NUR ---
Bedside report received from KRISTOFER Wade. Pt awakens to speech. He is cooperative, appropriate in conversation. Noted atrial flutter 125-155 by telemetry monitoring. Metoprolol given at this time, scheduled for this morning. Heart rate responded well to the administration of metoprolol last night, but then after a few hours it increased again, so the cardizem gtt was titrated up again on noc shift to 15 mg/hour, per report. At this time, cardizem gtt is at 15 mg/hour at this time. Given protonix and miralax as well at this time.
--- NOTE | 2021-05-09 07:25 | NUR ---
DENIES ANY PAIN THIS MORNING.
[2021-05-09 07:37] LABS: Bun/Creatinine Ratio 12.1 (12.0-20.0); Calcium, Blood 8.5 mg/dL (8.5-10.1); Creatinine, Blood 2.24 mg/dL (0.60-1.20); Magnesium, Blood 2.1 mg/dL (1.6-2.4); Potassium, Blood 3.8 mmol/L (3.5-5.5)
--- NOTE | 2021-05-09 09:29 | NUR ---
CARDIZEM GTT REDUCED TO 10 CC/HOUR. HEART RATE IS 108-114 BPM, B/P 110/83 (92).
--- NOTE | 2021-05-09 11:48 | NUR ---
heart rate was sustaining in 150s; cardizem gtt increased to 15 cc/hour, and rate is now decreased to 117 bpm. Pt is reclining in the chair, states he doesn't want to eat lunch. C/O feeling fullness in bladder; Muse had been clamped. It was unclamped, but no urine drainage. Bladder scan revealed 0. Muse reclamped and pt stated that the discomfort had gone. He is now falling asleep while reclined in the chair. Ivet is in the room with him.
--- NOTE | 2021-05-09 13:45 | NUR ---
cardizem gtt is off; pt's heart rate is still atrial flutter, but sustaining in the 80s-90s.
--- NOTE | 2021-05-09 16:04 | NUR ---
Pt awoke and attempted OOB by himself. I was alerted by remote monitoring that he was getting OOB. He had his feet on the floor, and said he wanted to get to the chair. Very unsteady on his feet, agitated, arguing with his , and very confused. ATtempted at administer seroquel but he spat it out of his mouth. PUlled off his telemetry wires, clothes and continued yelling and arguing, threatened to hit male KRISTOFER Flowers. Pt was put back in bed and austin and bilateral wrist restraints in place to keep the pt safe and protect him from injury. at bedside.
--- NOTE | 2021-05-09 16:04 | NUR ---
UPDATE AT APPROX. 1545 THIS RN ENTERED PT ROOM DUE TO PT YELLING AT SOMEONE IN ROOM. PT'S NURSE BASIM RN, WAS IN ROOM, THIS RN ASKED IF EVERYTHING WAS ALRIGHT. BASIM ASKED PT IF HE WOULD LIKE SOME FRESH WATER, THIS RN VOLUNTEERED TO GET ICE WATER FOR PT. UPON RETURNING TO PT ROOM, THIS RN OFFERED ICE WATER TO PT WHILE PT WAS SITTING IN RECLINER. PT GRABBED WATER CUP AND THREWCUP ACROSS ROOM AND YELLED "GET AWAY FROM ME." PT THEN STOOD UP FROM CHAIR AND BALLED UP HIS RIGHT FIST AND REPEATED "GET AWAY FROM ME OR I GONING TO KNOCK YOU." THIS RN STATED TO PT THAT HE IS NOT HITTING ANYONE AND THAT THIS RN WAS JUT BRINGING HIM AN ICE WATER. BASIM RN THEN STEPPED IN ROOM WITH A MEDICAION, THIS RN INFORMED BASIM THAT PT DISPLAYED SOME VIOLENT BEHAVIOR. BASMI RN INSTRUCTED PT TO SIT DOWN BEFORE HE FALLS. PT SAT IN CHAIR AND CONTINUED ARGUING WITH HIS STATING "YOU WERE NOTHING BEFORE I MET YOU", "GET ME A AREA MANAGER", "YOU HAVE ALL MY MONEY." RAY SPRING RETRIEVED A LAUREN VEST, STAFF BEGAN TO APPLY LAUREN PT BEGAN PULLING OFF TELEMTRY AND OXYGEN. PT WAS PUT IN BED BY 4 STAFF MEMBERS, INCLUDING THIS RN, AND LAUREN APPLIED. PT WAS BEING ALYED BEACK IN BED, PT FAKED THOUGH HE WAS TRYING TO PUNCH THIS RN. AFTER LAUREN WAS APPLIED, THIS RN EXITED PT ROOM.
--- NOTE | 2021-05-09 17:32 | NUR ---
Pt is quiet in restraints, eating some of his dinner but states not much of an appetite. He is assisted by the SN to eat. He is calm, talking with the SN, but still talking about his miseries in life, particularly lamenting his sorrows with his previous and the current one as well.
--- NOTE | 2021-05-09 17:53 | NUR ---
Pt is no longer agitated; he is lying in bed, eyes closed. Just converted from SVT 150 to sinus rhythm with first degree AV block, at 99 bpm. Bed alarm is on
--- NOTE | 2021-05-09 18:50 | NUR ---
Alerted that pt was pulling on his watson. Pt said that he wanted to lie on his side. Assisted to lie on his right side, austin vest in place. Wrist restraints are off for the time being.
--- NOTE | 2021-05-09 18:52 | NUR ---
Call from pt's Ivet to ask for update on how the pt is doing. She is concerned about how she will care for him at home, with his worsening dementia. STates she had been wanting to talk to PCP about it but found it difficult to talk about his memory loss in front of him because it made him angry. She would like to talk with someone about adjunct faculty for medical terminology planning tomorrow when she comes in.
--- NOTE | 2021-05-10 06:03 | NUR ---
SHIFT SUMMARY: PATIENT'S BP, O2, AND TEMP STABLE T/O SHIFT. HR TRENDED 145-150. NO ECHO B/C HR TRENDING TOO HIGH. RECEIVED ORDER FOR LOPRESSOR IV PUSH THIS AM, WAITING FOR PHARMACY TO PROCESS. PATIENT RESTLESS AND AGITATED ALL NIGHT - DID NOT SLEEP. WAS GIVEN PRN SEROQUEL AND ONE TIME ZYPREXA WITH NO CHANGE IN BEHAVIOUR. PATIENT WAS RESTRAINED WITH SOFT WRIST RESTRAINTS FOR ~4 HRS - REMOVED AT 0400 TO EASE PATIENT'S ANXIETY. PATIENT HAS INCREASED CONFUSION AND AGITATION. WILL CONTINUE TO MONITOR AND REPORT TO ONCOMING RN.
--- NOTE | 2021-05-10 07:42 | NUR ---
Alert, oriented to person, place (hospital in [place]) and roughly to date. However, he is confused about events recently and to ongoing care/treatment. Pt had disconnected the watson tubing from the collection device tubing, tied the catheter in a knot, and reconnected the tubings. He was asking for breakfast. Appears to be in no distress, and has no complaints of pain. Respirations even, unlabored while eating breakfast. When asked, he says that he is having "heart pain" over the left chest. Heart rate is 136-149. Cannot determine if it is SVT or atrial flutter. He says that he doesn't want anyone told about the chest pain.
--- NOTE | 2021-05-10 08:25 | NUR ---
States that his heart pain is better now. He is still confused about why he is in the hospital, and keeps talking about needing to get his jacket and leave. Muse catheter is now draining clear yellow urine. Julia pants put on pt to hide tubing and prevent pt pulling on it, which he was continuing to do, not understanding what it is and why it is placed. He is sitting up in bed, took all of his oral pills agreeably. He is drinking a cup of tea.
--- NOTE | 2021-05-10 09:18 | NUR ---
Sitting up in bed, watching out of the window. Ivet arrived waiting for the master planner Milagros to discuss options after discharge.
--- NOTE | 2021-05-10 10:03 | NUR ---
Pt needed to have BM; assisted to stand and transfer to the commode. He is more agitated by the austin and it is ill fitting due to his size and no larger sized available in [place] vest. It was removed after he had a BM, and he was helped back to bed. Dyspnea noted with the activity, and heart rate remains consistent at 139-150. Otherwise he tolerated the activity. His confusion makes care challenging. He is not aware of his own limitations. He wants to get out of bed, walk by himself to the bathroom, and leave the hospital. It takes 2 staff members to assist him to stand up, and he is unable to stand and walk without help. He does not understand the Muse catheter, and if he sees it he wants to pull it out. PJ pants in place to prevent this. Bed alarm is on, remote camera monitoring continuously for his safety. Three side rails also up for safety. States that he is tired. Lights were dimmed and blinds partially drawn to help him to rest. HOB lowered to pt's stated level of comfort.
--- NOTE | 2021-05-10 10:08 | NUR ---
Ivet is at the window seat between ICU and PCU waiting to talk with communications planner/health care marketing manager.
--- NOTE | 2021-05-10 10:27 | NUR ---
Becoming a little agitated, calling out "help" and saying that he needs to get up so that he can go home. Thinks that his is outside waiting for him in the car. Given Seroquel and also the scheduled oxycodone at this time.
--- NOTE | 2021-05-10 10:36 | NUR ---
Ivet in the room with the patient. Waiting for attending hospitalist rounding this morning.
--- NOTE | 2021-05-10 11:10 | NUR ---
Pt is insisting that he needs to pee. Inutile to attempt explainations about watson catheter. Helped up to chair as he was insisting to get out of bed, and attempting on his own, quite fervently.
--- NOTE | 2021-05-10 12:49 | NUR ---
Sitting up in chair, pulling on his belt, pulling off oxygen and saying he's getting up to go home. Telemetry shows atrial fibrillation 139-141 bpm. Pt is talking with his . Bladder training in progress. Muse collection bag has clear yellow urine.
--- NOTE | 2021-05-10 13:07 | NUR ---
Agitated, standing up from chair, holding on to furniture, leaning to right, unable to stand/walk without assistance. Talking about needing to rearrange the furniture. Keeps insisting that he needs to leave and go home. at the bedside. PT assisted into bed as he was not staying sitting in chair and is high fall risk. Side rails up x 3, lying on his right side. Bed alarm is on.
--- NOTE | 2021-05-10 13:38 | NUR ---
Pt appears to be falling asleep. no longer at the bedside. Blinds closed to promote sleep. Continuous camera monitoring ongoing. Bed alarm is on.
--- NOTE | 2021-05-10 14:10 | NUR ---
appears to be sleeping. heart rhythm atrial fibrillation, rate 139-151
--- NOTE | 2021-05-10 14:54 | NUR ---
Call to Dr. Castle regarding afib with RVR 140-150 bpm resistant to Toprol XL doses given today. Cardiology consultation order placed. Call to Dr. Cartagena at this time to request consultation. New orders received.
--- NOTE | 2021-05-10 15:25 | NUR ---
Medicated per MD orders with additional Toprol XL 50 mg. Pt lying in bed, closing eyes. Room modifications made to promote sleep: blinds closed, soft music playing, overhead lights off.
--- NOTE | 2021-05-10 16:36 | NUR ---
"Jeancarlos" has only slept for a brief few minutes occasionally this afternoon. He is asking to get out of here when staff are assisting him. He is increasingly confused, telling me now that he is in [place], going to take a trip tomorrow, and that his is off seeing other men on her aeroplane. He is yelling out frequently for Ivet, Jeancarlos and Ellen. Repositioned on his left side by himself. Assessed pt's safety and comfort at this time. Remote camera monitoring ongoing.
--- NOTE | 2021-05-10 17:48 | NUR ---
Continuing to attempt to get out of bed. Hallucinating, seeing fire engines, kittens, and foot prints on the ceiling and yusuf. is at the bedside. Pt says that he needs to go different places. He is constantly moving around in the bed, putting his legs to one side or the other, pulling his covers off, asking to get his feet out of bed and on to the floor. He has not slept for more than a few minutes in 24 hours.
--- NOTE | 2021-05-11 05:15 | NUR ---
SHIFT SUMMARY: PATIENT'S BLOOD SUGAR IN ACCEPTABLE RANGE. HR STILL TRENDING 140-150S. BP WAS ELEVATED EARLY IN SHIFT - MEDICATED PER EMAR AND HAS BEEN IN ACCEPTABLE RANGE THE REMAINDER OF SHIFT. PATIENT CONFUSED AND PERIODICALLY HALLUCINATES, BUT HAS NOT NEEDED RESTRAINTS. PATIENT WAS GIVEN A BUSY APRON TO KEEP HIM FROM PULLING AT O2 NC AND IV. PATIENT ATTEMPTED TO GET OOB X1 D/T AN INCONTINENT EPISODE. PATIENT SLEPT ~4 HRS INTERMITTENTLY - PREFERS RIGHT SIDE AND WARM BLANKETS. WILL CONTINUE TO MONITOR AND REPORT TO ONCOMING RN.
[2021-05-11 05:25] LABS: BASOPHILS ABSOLUTE AUTO 0.08 K/mm3 (0.00-0.23); BASOPHILS PERCENT AUTO 1 % (0-2); EOSINOPHILS ABSOLUTE AUTO 0.18 K/mm3 (0.00-0.68); EOSINOPHILS PERCENT AUTO 2 % (0-6); Hematocrit 37.7 % (37.0-53.0); Hemoglobin 12.2 g/dL (13.5-17.5); IMMATURE GRAN ABSOLUTE AUTO 0.04 K/mm3 (0.00-0.10); IMMATURE GRAN PERCENT AUTO 1 % (0-1); LYMPHOCYTES ABSOLUTE AUTO 1.24 K/mm3 (0.84-5.20); LYMPHOCYTES PERCENT AUTO 17 % (21-46); MONOCYTES ABSOLUTE AUTO 0.79 K/mm3 (0.16-1.47); MONOCYTES PERCENT AUTO 11 % (4-13); Mean Corpuscular HGB 31.9 pg (26.0-34.0); Mean Corpuscular HGB Conc 32.4 g/dL (31.5-36.5); Mean Corpuscular Volume 98 fL (80-100); Mean Platelet Volume 9.9 fL (9.1-12.4); NEUTROPHILS ABSOLUTE AUTO 5.06 K/mm3 (1.96-9.15); NEUTROPHILS PERCENT AUTO 69 % (41-73); Platelet Count 227 K/mm3 (150-400); RDW Coefficient Variation 14.1 % (11.7-14.2); RDW Standard Deviation 50.5 fL (35.1-46.3); Red Blood Cell Count 3.83 M/mm3 (4.30-5.90); White Blood Cell Count 7.39 K/mm3 (4.00-11.30)
[2021-05-11 05:55] LABS: Bun/Creatinine Ratio 13.3 (12.0-20.0); Calcium, Blood 8.7 mg/dL (8.5-10.1); Creatinine, Blood 2.4 mg/dL (0.60-1.20); Magnesium, Blood 2.2 mg/dL (1.6-2.4)
--- NOTE | 2021-05-11 17:50 | NUR ---
PT SUMMARY: PT WAS RESTRAINT FREE ALL SHIFT, PT STILL CONFUSED AND DEMENTED AT BEDSIDE MOST OF THE SHIFT, WHEN LEFT TO EAT LUNCH PT GOT A LITTLE AGITATED, WAS PULLING OFF TELE STICKERS BUT IS REDIRECTABLE, PT NOTED TO BE MORE CALM AND RESTING WHEN IS AT BEDSIDE. DR TUTTLE STARTED PT ON PO CARDIZEM 90 QID, PT'S HRR WAS AT 147-149 ALL MORNING THEN WENT DOWN TO 80'S AFTER FIRST DOSE OF CARDIZEM PO, PT MOSTLY AFIB BUT GOES INTO AFLUTTER AT TIMES. BP SYSTOLIC 130'S, PT DENIES ANY CHEST PAIN, SATS ABOVE 92% ON 3L OF O2, AFEBRILE. PT RECEIVED A BED BATH TODAY, PT HASNT HAD MUCH SLEEP PER THE LAST COUPLE DAYS PER REPORT AND PT HAS BEEN SLEEPING ON AND OFF, REPOSTIONED IN BED WHEN AWAKE. ADEQUATE PO FOOD AND FLUID INTAKE, USES URINAL FOR VOIDING ATTENDS IN PLACE, NO REPORTED BM ON BOWEL CARE. PT FOR POSSIBLE SNF PLACEMENT. AT BEDSIDE WAS ABLE TO TALK TO THE PROVIDER AND AWARE OF THE PLANS, NO OTHER ISSUES AT THIS TIME, WILL REPORT TO ONCOMING SHIFT
--- NOTE | 2021-05-11 20:42 | NUR ---
CARE ASSUMPTION: RECEIVED REPORT FROM ALICIA SALGADO RN. PATIENT IN BED WATCHING TV AND JOKING WITH STAFF. BOOSTED PATIENT WITH HELP FROM AID. PATIENT'S HR IN 70S AND OTHER VSS. PATIENT IN GOOD SPIRITS THOUGH STILL CONFUSED.
--- NOTE | 2021-05-12 05:14 | NUR ---
SHIFT SUMMARY: PATIENT'S HR MAINTAINED 70-90S T/O SHIFT, O2 SATS >92% ON 4L NC. BP SYSTOLIC IN 140S AND PATIENT AFEBRILE. CBG WNL. PATIENT WAS IN RESTRAINTS FOR 30 MIN D/T PULLING CALL LIGHT OUT OF WALL AND DISCONNECTING HIS O2. MEDICATED PER EMAR WITH MINIMAL SUCCESS. PATIENT IS HALLUCINATING MORE FREQUENTLY AND DID NOT SLEEP MORE THAN AN HOUR ALL NIGHT. HE FREQUENTLY HOLLERED OUT "HELP!" AND STATED TO THIS RN "THAT'S HOW YOU GET PEOPLE TO COME RUNNING" AND WOULD YELL IT EVEN WHEN STAFF WAS IN THE ROOM. HE WAS PLEASANT AND COOPERATIVE WITH THIS RN, BUT PUSHED ANOTHER RN'S THUMB BACK WHEN HE WENT TO SHAKE HANDS. PLAN IS TO D/C TO SNF. WILL CONTINUE TO MONITOR AND REPORT TO ONCOMING RN.
--- NOTE | 2021-05-12 07:20 | NUR ---
UPDATE: MEDICAL ADMINISTRATIVE CALLED WHILE REPORT WAS BEING GIVEN TO ONCOMING NURSE THAT PATIENT WAS CLIMBING OUT OF BED. PATIENT DID NOT HAVE NC IN PLACE AND WAS HOLLERING THAT THE POLICE WERE COMING. GRABBED AT ONCOMING RN AND PULLED HER VOCERA OFF. BILATERAL WRIST RESTRAINTS WERE PUT IN PLACE PATIENT ATTEMPTED TO HIT RNS AND HAD INCREASED AGITATION.
[2021-05-12 09:17] LABS: Albumin, Blood 2.7 g/dL (3.4-5.0); Anion Gap 6 mmol/L (6-16); Blood Urea Nitrogen 36 mg/dL (8-24); Bun/Creatinine Ratio 15.5 (12.0-20.0); CO2, Blood 28 mmol/L (21-32); Calcium, Blood 8.8 mg/dL (8.5-10.1); Chloride, Blood 106 mmol/L (98-108); Creatinine, Blood 2.33 mg/dL (0.60-1.20); Glomerular Filtration Rate 27 (60-); Glucose, Blood 119 mg/dL (70-99); Phosphorus, Blood 3.9 mg/dL (2.5-4.9); Sodium, Blood 140 mmol/L (136-145)
--- NOTE | 2021-05-12 10:00 | NUR ---
AM NOTE: PATIENT ALERT TO SELF AND . UNAWARE OF SITUATION AND CONFUSED. HISTORY OF DEMENTIA. PERRLA. OVERALL WEAK. 2 PERSON TRANSFER. LIMITED ROM IN LEFT SHOULDER. SKIN FRAGILE AND BRUISING/SCABS SCATTERED THROUGHOUT. ON 3L NASAL CANNULA SATING MID 90'S. LUNGS SOUNDING CLEAR. NO COUGH. ON TELE SHOWING SINUS RHYTHM WITH HR 70'S. DENIES CHEST PAIN/PRESSURE. VITAL SIGNS STABLE. NO SIGNS OF EDEMA. TOLERATING PO DIET, EATING SMALL AMOUNTS. DENIES ABDOMINAL PAIN/NAUSEA. ATTENDS IN PLACE. UP TO RECLINER THIS AM WITH OT. AT BEDSIDE. ABLE TO TURN SELF IN BED. Q2 TURNING AND NEEDED. BED ALARM AND CAMERA ON FOR SAFETY. CALL LIGHT IN REACH. CASE MANAGEMENT IN TO TALK WITH . DENIES NEEDS AT THIS TIME. WILL CONTINUE TO MONITOR.
--- NOTE | 2021-05-12 14:48 | NUR ---
Pt is sitting up in bed and alert. Patient's sp, Ivet, is bedside and they both talk at length about pt's health history, their love for each other and their many adventures. They have travelled to many locations out of state as well as spent 16 yrs travelling by RV around the but mostly staying [facility]. They share about their desire to go home but mention that not all the numbers support that transition quite yet. I encourage self-care, reinforce helpful attudes and practices and provide therapeutic listening. Kaleb and Ivet show signs of an elevated mood. I will continue to remain available to pt and family.
--- NOTE | 2021-05-12 18:03 | NUR ---
SHIFT SUMMARY: NO ACUTE CHANGES. PATIENT REMAINS CONFUSED. EASILY REDIRECTED THIS AFTERNOON. 2 PERSON ASSIST TO CHAIR. REMAINS ON 3-4L NASAL CANNULA SATING MID 90'S. TELE SHOWING SINUS RHYTHM WITH HR 70'S. DENIES CHEST PAIN/PRESSURE. VITAL SIGNS STABLE. TOLERATING PO DIET. ABLE TO USE URINAL WITH ASSISTANCE. ATTENDS IN PLACE. PATIENT ABLE TO TURN SELF IN BED. BED ALARM AND CAMERA REMAIN ON. AT BEDSIDE. MEDICAL STATUS WITH TELE. WILL CONTINUE TO MONITOR AND REPORT OFF.
[2021-05-13 00:08] LABS: Source, Urine Foley catheter
[2021-05-13 00:10] LABS: Bilirubin, Urine Neg (Neg); Blood, Urine 1+ (Neg); Glucose Qualitative, Urine Neg (Neg); Ketones, Urine Neg (Neg); Leukocyte Esterase, Urine Neg (Neg); Nitrite, Urine Neg (Neg); Protein, Urine 3+ (Neg); Urobilinogen, Urine NORM (Normal)
[2021-05-13 00:24] LABS: Appearance, Urine Clear (Clear); Color, Urine Yellow (P-Yellow)
[2021-05-13 00:27] LABS: Bacteria Few /hpf; Hyaline Casts 0-2 /lpf (0-2); Red Blood Cells, Urine 0-2 /hpf (0-2); Squamous Epithelial Cells Rare /hpf (Few)
[2021-05-13 04:04] LABS: Albumin, Blood 2.6 g/dL (3.4-5.0); Anion Gap 6 mmol/L (6-16); Blood Urea Nitrogen 35 mg/dL (8-24); Bun/Creatinine Ratio 14.6 (12.0-20.0); CO2, Blood 30 mmol/L (21-32); Calcium, Blood 8.7 mg/dL (8.5-10.1); Chloride, Blood 106 mmol/L (98-108); Creatinine, Blood 2.39 mg/dL (0.60-1.20); Glomerular Filtration Rate 26 (60-); Glucose, Blood 112 mg/dL (70-99); Phosphorus, Blood 3.9 mg/dL (2.5-4.9); Potassium, Blood 4.4 mmol/L (3.5-5.5); Sodium, Blood 142 mmol/L (136-145)
--- NOTE | 2021-05-13 07:22 | NUR ---
Pt is awake, alert, and oriented to person and following directions. Does not know where he is; he states that he just got off of a plane and is talking about needing to retire completely. Pt set up for am care and he washed his face and brushed his teeth in bed. Declined OOB to chair, states he is too tired. He is falling asleep while sitting up in bed. Lights are on and blinds are open. Bed alarm is on.
--- NOTE | 2021-05-13 11:39 | NUR ---
spoke with Ivet. She expressed that she feels that the terminal clerk memory care placement is probably the best for Jeancarlos, as she can see from recent experiences that he is too much for her to take care of on her own, and recognizes that he his dementia and care needs will be ongoing and worsening as time goes on. Wound care completed on the pt's left forearm. Allevyn in place at time of initial assessment, noted has blood around the border. It was removed; noted skin tear underneath 5 mm in length. Seeping a scant amount of blood. Vaseline gauze applied to the skin tear and non adherent dressing placed on top of that, all secured with MT spandage netting. The pt is sitting up in chair, now reading a magazine.
--- NOTE | 2021-05-13 13:12 | NUR ---
Pt falling asleep, sitting up in recliner. Pillows put under his arms for comfort as he declined getting out of recliner to rest in the bed. Oxygen reapplied to his nares as apparently he had taken it off. Chair placed in reclined position and warm blankets put on patient after he c/o feeling too cold. He appears to be falling asleep now, resting comfortably.
--- NOTE | 2021-05-13 17:02 | NUR ---
Jeancarlos was helped to wheelchair and taken around the unit hallways for diversional activity, looking out the windows and at the artwork on the yusuf. Then taken back to room, [place] [facility] [place] very [place], and then he walked across the room with the walker and RN guidance to look out the window. He felt tired, so he walked back and got into recliner chair in time for dinner.
--- NOTE | 2021-05-13 17:50 | NUR ---
Jeancarlos again did not have an appetite this mealtime. He put all of his dinner into the emesis basin and said he would enjoy feeding it to the ducks instead. Says that he was waiting for the blood sausage, and doesn't want the chicken.
--- NOTE | 2021-05-13 20:49 | NUR ---
REPORT RECIEVED FROM POLLY PREVENTIVE MEDICINE OFFICER AND AWAITING PT T/F TO ROOM 349.
--- NOTE | 2021-05-13 21:05 | NUR ---
PT T/F FROM PCU 8 TO ROOM 349 AT 2053 VIA BED. HE WAS ORIENTED TO NEW ROOM AND CALL SYSTEM W/CAMERA MONITORING COMMENCED AND BED ALARM ON. HE REMAINS IN LAUREN VEST FOR FALL RISK AND IMPULSIVITY. HE'S A/OX3 AT PRESENT BUT WAS REPORTED TO BE FORGETFULL W/DEMENTIA AND SUNDOWNER'S. PT DENIES PAIN AND ALL OTHER COMPLAINTS UPON ARRIVAL. HE'S ON 1L O2 W/SPO2 WNL AND WEARS 3-4L AT BASELINE. NO S/S DISTRESS. WCTM.
--- NOTE | 2021-05-13 21:07 | NUR ---
PT TRANSFER ASSUMED CARE OF PT AT 1900, PT IS ALERT BUT NOT ORIENTED. PT ABLE TO FOLLOW DIRECTIONS. THIS NURSE WAS NOTIFIED PT NEEDED TO TRANSFER TO MEDICATION FLOOR AT THE START OF SHIFT. REPORT GIVEN TO RODNEY MINER. PT LEFT PCU8 @ 2049. PT TOLERATED TRANSFER WELL.
--- NOTE | 2021-05-14 01:35 | NUR ---
PT'S BECOME INCREASINGLY MORE ANXIOUS AND CONFUSED AT THIS TIME. HE'S PULLING ON CATHETER, HALLUCINATING, ATTEMPTING TO REMOVE RESTRAINTS AND IS MORE DIFFICULT TO REDIRECT THAN PREVIOUS. PT THREW FAN AND EAR PLUGS ACROSS THE ROOM AND REFUSED TO TAKE PRN SEROQUEL DESPITE ENCOURAGEMENT. HE'S PLEASANT WHEN STAFF AT BEDSIDE BUT SPEAKS NONSENSICALLY, REFUSES SOME CARE AND DOESN'T REORIENT AT PRESENT. MADE AWARE, WRIST RESTRAINTS + LAUREN RX'D AND ZYPREXA IM X1 RX'D AND RECIEVED. WILL MONITOR FOR AFFECT AND POSSIBILITY TO DC NEWLY APPLIED SOFT WRIST RESTRAINTS.
--- NOTE | 2021-05-14 05:02 | NUR ---
SUMMARY: PT'S MENTATION IS LABILE. HE BEGAN SHIFT A/OX3, PLEASANT AND COOPERATIVE W/CARE AND APPROPRIATELY SPECIFYING NEEDS. THE NIGHT PROGRESSED HE BECAME MORE AGITATED AND CONFUSED, HALLUCINATING, SPEAKING NONSENSICALLY, CALLING INTO HALLS AND REFUSING PO MEDS OR ASSIST W/CARE. PT REQUIRED ZYPREXA IM X1 D/T REFUSING PO SEROQUEL AND HAD TO HAVE BILAT WRIST RESTRAINTS IN ADDITION TO EXISTING LAUREN VEST. HE BEGAN DISROBING, TUGGING AT LINES AND BANERJEE, THROWING STUFF IN HIS ROOM AND WAS MUCH MORE DIFFICULT TO REDIRECT. ZYPREXA WAS INEFFECTIVE AND PT DIDN'T SLEEP MUCH THIS SHIFT. CAMERA MONITORING IS IN PLACE W/BED ALARM ON FOR SAFTEY. TURN SCHEDULE WAS MAINTAINED AND BANERJEE IS PATENT/DRAINING. THIS MORNING HE HAS BEGUN TO BE MORE COMPLIANT AGAIN AND ALLOWED STAFF TO GIVE AM MEDS W/PRN SEROQUEL, WILL ASSESS FOR EFFECT. NO ACUTE CHANGES, VSS/AFEBRILE. PLACEMENT AT THE [facility] PENDING. WCTM AND REPORT TO DAY RN.
--- NOTE | 2021-05-14 06:23 | NUR ---
PT FINALLY CALM AND IS NOW SLEEPING AFTER RECIEVING SEROQUEL.
--- NOTE | 2021-05-14 14:56 | NUR ---
TALKED TO ABOUT CBG. CAME IN WITH HYPOGLYCEMIA 05/05. FOR PAST 8 DAYS HAS BEEN BETWEEN 100-150 WITH ONE 88 READING. OK TO CHANGE CBG FROM AC/FONTENOT TO ONCE A DAY
--- NOTE | 2021-05-14 16:34 | NUR ---
ALERT TO SELF AND FAMILY. AGITATED IN AM WITH FIDDLING WITH EQUIPMENT. TELE D'C. 1-2 PERSON ASSIST TO CHAIR OR BSC. BANERJEE MAGALY. D'C WRIST RESTAINTS THIS AM. CBG CHANGED TO DAILY CBG HAS BEEN 100-150 FOR PAST 8 DAYS. PLEASANTLY CONFUSED. MEDS WHOLE WITH WATER. UNLABORED RESPIRATIONS. WCTM.
--- NOTE | 2021-05-14 20:55 | NUR ---
WENT IN TO TRY TO GIVE PT HIS MEDICATIONS. PT BECAME AGITATED AND BEGAN THREATENING TO KILL ME. I WILL WAIT A BIT AND GO BACK IN TO TRY AGAIN.
--- NOTE | 2021-05-14 21:40 | NUR ---
OFFERED PT MEDICATIONS AGAIN. PT PLEASANTLY DECLINED. I ASKED A COUPLE MORE TIMES TO BE SURE. PT SAID NO THANKS. I WILL TRY AGAIN IN AN HOUR.
--- NOTE | 2021-05-14 22:29 | NUR ---
TRIED TO MEDICATE PT ONCE AGAIN AND HE BECAME UPSET AGAIN. MEDICATION RETURNED TO THE PYXIS.
--- NOTE | 2021-05-15 03:31 | NUR ---
SHIFT SUMMARY PT BECOMES AGITATED AT TIMES. PT REFUSED TO TAKE ALL MEDICATIONS OFFERED TO HIM. PT CONFUSED, SOMETIMES PLEASANT AND SOMETIMES ANGRY. PT DID THREATEN TO HARM ME LAST NIGHT, BUT HAS BEEN MOSTLY PLEASANT SINCE THEN. PT CONTINUES TO BE IN LAUREN VEST. ORDER GOOD UNTIL 1000 THIS MORNING. CALL LIGHT WITHIN REACH. WILL CONTINUE TO MONITOR.
[2021-05-15 06:29] LABS: Albumin, Blood 2.6 g/dL (3.4-5.0); Anion Gap 11 mmol/L (6-16); Blood Urea Nitrogen 36 mg/dL (8-24); Bun/Creatinine Ratio 13.7 (12.0-20.0); CO2, Blood 25 mmol/L (21-32); Calcium, Blood 8.5 mg/dL (8.5-10.1); Chloride, Blood 107 mmol/L (98-108); Creatinine, Blood 2.62 mg/dL (0.60-1.20); Glomerular Filtration Rate 23 (60-); Glucose, Blood 103 mg/dL (70-99); Phosphorus, Blood 4.1 mg/dL (2.5-4.9); Sodium, Blood 143 mmol/L (136-145)
--- NOTE | 2021-05-15 16:30 | NUR ---
Kaleb states that he remembers me from my prior visit. 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 I provide therapeutic listening, a calming presence and companionship. I will continue to remain available to patient and family.
--- NOTE | 2021-05-15 16:30 | NUR ---
Pt up in chair on austin. Walked today with pt and ot is working with him. pt figetty and restless. Review with nursing medications. Suggest he get seroquesl ith breakfast and dinner. would also try a tylenol as he barces his back may be painful. Suggest try getting th watson catheter out. They will do it during the day and see if he can void or still retaining. Pt may always need a austin vest for fall protection will see how he progresses.
--- NOTE | 2021-05-15 18:07 | NUR ---
PT HAS BEEN UP TO CHAIR OFTEN TODAY, WALKED IN THE HALLWAY WITH P.T. SPOUSE WAS INTO SEE HIM EARLY AFTERNOON. PT HAS BECOME AGITATED THIS AFTERNOON. HAS BECOME UNCOOPRATIVE, REFUSED AFTERNOON MEDS. LAUREN PECK REMAINS, WILL CONTINUE TO MONITOR AND REPORT TO ONCOMING RN
--- NOTE | 2021-05-15 22:48 | NUR ---
PT STILL REFUSING TO TAKE MEDICATION. OFFERED MEDICATION SEVERAL TIMES.
--- NOTE | 2021-05-16 00:07 | NUR ---
WAS ABLE TO GET PT TO AGREE TO TAKE SOME OF HIS MEDICATIONS.
--- NOTE | 2021-05-16 03:54 | NUR ---
SHIFT SUMMARY PT CONTINUALLY GETTING MORE AND MORE AGITATED THROUGHOUT THE EVENING. WAS ABLE TO GET HIM TO TAKE HIS SEROQUEL LAST NIGHT, BUT HAD DIFFICULTY GETTING HIM TO TAKE ALL OF HIS ORAL MEDICATIONS. PT YELLING AND HAVING OUTBURSTS OFTEN. PT TRYING TO PULL OF LAUREN VEST AND PULL OUT CATHETER. PT MEDICATED WITH ZYPREXA. PT CONTINUES TO YELL OUT AND TRY TO PULL AT THINGS. CALL LIGHT IS WITHIN REACH AND WILL CONTINUE TO MONITOR.
[2021-05-16 06:52] LABS: Albumin, Blood 2.8 g/dL (3.4-5.0); Anion Gap 6 mmol/L (6-16); Blood Urea Nitrogen 36 mg/dL (8-24); Bun/Creatinine Ratio 12.9 (12.0-20.0); CO2, Blood 29 mmol/L (21-32); Calcium, Blood 8.7 mg/dL (8.5-10.1); Chloride, Blood 108 mmol/L (98-108); Glomerular Filtration Rate 22 (60-); Glucose, Blood 117 mg/dL (70-99); Phosphorus, Blood 3.9 mg/dL (2.5-4.9); Potassium, Blood 3.9 mmol/L (3.5-5.5); Sodium, Blood 143 mmol/L (136-145)
--- NOTE | 2021-05-16 18:36 | NUR ---
PT FEELING BETTER TODAY, ABLE TO DISCONTINUE OXYGEN THIS MORNING, PT HAS BEEN ON ROOM T/O THE SHIFT AND MAINTAINING SATS IN UPPER 90'S. SHE HAS BEEN ABLE TO COUGH UP SECRETIONS TODAY, NO NEEDS FOR SELF SUCTIONING. PT REQUESTED TO "MOVE AROUND", WALKED WITH P.T. IN [place] FOR SHORT DISTANCE. ABX DISCONTINUED AND IV REMOVED. POSSIBLE DISCHARGE TO [facility] ON WEDNESDAY, SEE PUMPER HAND NOTE. WILL CONTINUE TO MONITOR AND REPORT TO ONCOMING RN.
[2021-05-17] MEDS ORDERED: GABA100 PO (00:49)
[2021-05-17] MEDS ORDERED: EUTHYROX50 MCG PO (00:49)
[2021-05-17] MEDS ORDERED: MECL12.5 PO (00:50)
[2021-05-17] MEDS ORDERED: ALLOPURINOL100 M1 PO (00:51)
--- NOTE | 2021-05-17 05:00 | NUR ---
Shift summary Patient alert to self and confused. Restraints maintained. Noted with interrupted sleep. Muse in place and draining.
[2021-05-17 05:57] LABS: Albumin, Blood 2.8 g/dL (3.4-5.0); Anion Gap 7 mmol/L (6-16); Blood Urea Nitrogen 31 mg/dL (8-24); Bun/Creatinine Ratio 12.1 (12.0-20.0); CO2, Blood 29 mmol/L (21-32); Calcium, Blood 8.7 mg/dL (8.5-10.1); Chloride, Blood 108 mmol/L (98-108); Creatinine, Blood 2.56 mg/dL (0.60-1.20); Glomerular Filtration Rate 24 (60-); Glucose, Blood 105 mg/dL (70-99); Potassium, Blood 3.9 mmol/L (3.5-5.5); Sodium, Blood 144 mmol/L (136-145)
--- NOTE | 2021-05-17 15:28 | NUR ---
Received call from pt's bedside RN that visiting and would like to talk about taking pt home instead of placement and had questions re: hospice. Visit made to bedside. Pt slept or rested with eyes closed t/o most of my visit. RN had reported that pt had been calm and she had been able to leave austin vest off t/o am. Pt does not demonstrate nonverbal indicators of pain, anxiety, restlessness or distress while I was visiting this am. Pt answered and shook his head no, when asked if he was hurting during one of his wakeful moments. Time spent listening as explained that she had been awake in the night, mulling over plan for placement of pt in a memory care facility and really was feeling uncomfortable with that plan. is of slight build and elderly but looks very healthy and is alert, oriented, articulate and open to discussing options and goals of care. Pt has been caring for her with dementia at home for years and helps him with all ADL's. She would not be able to lift pt if needed. When I inquired about support/help available she states she has three close by neighbors who have offered to help and her sister is coming for awhile starting Wednesday. She also has a daughter in the state who could come if needed. I explained Hospice care and provided names of three programs locally. I told her Dietary Manager would give her written info on those agencies and ask her to choose one or choose whichever one could provide care the earliest. WE talked about options available if she becomes unable to meet pt's needs at home. Pt is a and she would like help requesting cg hours in the home for him. I also let her know that if pt qualified for hospice he may be eligible for placement at [facility] [place] if bed available or [facility] would cover room/board at a local LTC facility if home care was no longer possible. Pt's KPS score is 30%. Due to multiple comorbidities and dependence with dementia I believe he would meet criteria for hopice but informed that Hospice agency would review and decide if those criteria are met for the medicare hospice benefit. verbalized good understanding of above. Pt's RN joined us for last part of my visit and 's wishes and d/c plan reviewed with her, called report to Aaron and Dr Hassan. Verbal order obtained and entered for Hospice eval. Plan to remain available for support and s/s assessment/managment. given our contact info for any further questions or desire for return visit. Plan is for d/c home with & hospice, additional ct support from [facility], family and neighbors.
--- NOTE | 2021-05-17 17:32 | NUR ---
SHIFT SUMMARY PATIENT MEDICATED FOR PAIN X1. PATIENT DENIES NAUSEA AND SHORTNESS OF BREATH. PATIENT IS A SBA FOR TRANSFERS. PATIENT IS ON2L VIA N/C MAINTAINING SATS ABOVE 90%. RESTRAINTS DISCONTINUED AT 0945. PATIENT HAS BEEN CALM AND COOPERATIVE ENTIRE SHIFT. PATIENT HAS BEEN SLEEPING ON AND OFF. PATIENT VISITED IN AFTERNOON, SHE EXPRESSED SHE WANTS TO TAKE HIM HOME. PALLIATIVE CARE CONSULTED. HOSPICE REFERRAL ORDERED. BANERJEE IS PATENT AND DRAINING TO GRAVITY. PATIENT HAS BEEN EATING AND DRINKING WELL. PATIENT IS PLEASANT AND COOPERATIVE WITH CARE.
--- NOTE | 2021-05-18 06:45 | NUR ---
Shift summary Throughout the night patient with two episodes in which he was yelling in his sleep afraid, patient awoken and easily re-oriented. Otherwise patient slept throughout the night with no acute changes noted.
--- NOTE | 2021-05-18 14:59 | NUR ---
Case conference with bedside RN and visit to pt and at bedside. Pt awake, alert, more engaged in light conversation with me today. He is sitting up in bed awaiting a much anticipated buritto for lunch. Pt expressed being very happy with his burrito, "except for missing hot sauce". appears much better rested, smiling. She and of 47 years appear to be enjoying each other's company. He denies pain, nausea, FONTENOT, feeling anxious or distressed. He demonstrated mild discomfort & anxiety re: watson catheter but was easily redirected/distracted. He has not required austin vest for safety. Continuity of care with same RN as yesterday. She states pt is doing well and has not required prn seroquel dosing today. Last dose @[facility] yesterday. hopeful for her 's d/c home with hospice early this week. She is aware that CM will be available tomorrow to discuss DME needs at home and hospice agency availability/arrangements.
--- NOTE | 2021-05-18 17:35 | NUR ---
SHIFT SUMMARY PATIENT MEDICATED X1 FOR RIGHT SHOULDER PAIN. PATIENT STATES THIS IS FROM AN OLD INJURY. PATIENT DENIES NAUSEA AND SHORTNESS OF BREATH. PATIENT IS A SBA FOR TRANSFERS. BANERJEE IS PATENT AND DRAINING YELLOW URINE. PATIENT VISITED IN AFTERNOON. PATIENT HAS BEEN VERY PLEASANT ALL SHIFT, A&O 2-3. PATIENT IS PLEASANTLY CONFUSED. PATIENT IS EATING AND DRINKING WELL. PATIENT COULD POSSIBLY DISCHARGE TOMORROW WITH HOSPICE. AWAITING HOSPICE INTAKE APPOINTMENT TO BE SCHEDULED. PATIENT IS PLEASANT AND COOPERATIVE WITH CARE.
--- NOTE | 2021-05-19 05:37 | NUR ---
SHIFT SUMMARY PT REMAINS PLEASANTLY CONFUSED. NO AGITATION. PT DID ATTEMPT TO REMOVE HIS PANTS SEVERAL TIMES AND PULL ON HIS CATHETER BUT WAS EASILY REDIRECTED AND PANTS PULLED UP. PT SLEPT WELL, ONLY WAKING A FEW TIMES THROUGHOUT THE NIGHT. PT REPORTS SOME PAIN WITH REPOSITIONING IN HIS BACK BUT DENIES IT ONCE RESTING. MOBILITY IN LEFT ARM VERY LIMITED. PT ON 2 L VIA NC. O2 SATS IN THE LOW TO MID 90'S. PT AWAKE THIS AM, REQUESTING OJ AND WATCHING THE NEWS. VITAL SIGNS STABLE. CURRENT PLAN TO D/C BACK HOME WITH .
[2021-05-19] MEDS ORDERED: BUME2 PO (12:29)
[2021-05-19] MEDS ORDERED: LOSA25 PO (12:31)
[2021-05-19] MEDS ORDERED: CLOP75 PO (12:31)
[2021-05-19] MEDS ORDERED: DILT60ER PO (12:33)
[2021-05-19] MEDS ORDERED: COLACE100 MG PO (12:34)
[2021-05-19] MEDS ORDERED: Flonase 0.05% N16 GM (12:34)
[2021-05-19] MEDS ORDERED: METSALMENC TOP (12:36)
[2021-05-19] MEDS ORDERED: ONDA4 PO (12:37)
[2021-05-19] MEDS ORDERED: ROXICODONE5 MG PO (12:38)
[2021-05-19] MEDS ORDERED: MIRALAX17 GM PO (12:38)
[2021-05-19] MEDS ORDERED: QUET25 PO (12:39)
[2021-05-19] MEDS ORDERED: POTA10T PO (12:39)
[2021-05-19] MEDS ORDERED: XARELTO15 MG PO (12:40)
[2021-05-19] MEDS ORDERED: Seroquel Xr50 MG PO (12:40)
--- NOTE | 2021-05-19 13:38 | NUR ---
Supportive visit made to pt and at bedside. Pt appears comfortable and mostly calm but wants to discuss his catheter, what it is made of, what it does. In simple terms, answered pt's questions and he seemed satisfied with that. Pt and very happy for his discharge home today. Pt being evaluated for hospice and CM working with housing liaison to coordinate d/c planning and services.
--- NOTE | 2021-05-19 14:07 | NUR ---
Received referral from nurse health care consultant (Milagros Redd) on 05/19/2021. Patient is to discharge 05/19/2021 with orders for hospice and family elected [facility]. Patient was admitted to [facility] by [facility] Lead Performance Support Analyst (Dr. Castle) who has determined that patient is hospice appropriate. Gathered supporting documentation for referral (face sheet, labs, imaging, progress notes, palliative care note, and H&P) and sent to [facility] Intake [employer] (Luda Bennett) for review. Will attempt to meet with patient and family today to further discuss the above. Sabina Houser Referral Liaison
--- NOTE | 2021-05-19 14:12 | NUR ---
Met with patient and patient's (Ivet Collado) to further hospice services and election of [facility]. Patient and are agreeable to the above. Discussed what hospice is (reserved for patients with a terminal diagnosis with life expectancy of 6 months or less). Discussed that some patients exceed the 6 months expectancy and stay on service while other patients may stabilize and come off hospice. Patient and verbalized understanding of the above. Discussed with patient and that hospice service focuses on quality of life at the end of life and that rather than measuring the quantity of days, the quality of those days would be measured. Discussed with patient and that with hospice service the goal would be to keep the patient out of the hospital and comfortable by managing symptoms at home. Patient and verbalized understanding. Discussed the people, prescriptions, and equipment of hospice. People- discussed the team of people and their roles (RNs, chaplains, therapists, LCSWs, CNAs, and volunteers) that would be there to support not only the patient but also their family during this time. Explained to the patient and that the team would be custom tailored to the patient needs during this time. Patient and verbalized understanding. Prescriptions- discussed that we utilize a mail order pharmacy ([facility]) to provide medications related to the hospice diagnosis and for symptom management. All other medications that patient chose to stay on would be patient's and/or patient's family's responsibility to provide and pay for. Patient and verbalized understanding. At this time patient does not have a need for morphine 20mg/mL, lorazepam 0.5mg, or hyoscyamine 0.125mg SL tablets. Patient and verbalized understanding. Equipment- discussed with patient and that we contract through [employer] to provide DME such as hospital beds, commodes, etc. to patient. As patient is to discharge from [facility] today and not be admitted to hospice services until tomorrow- 05/20/2021, no DME was written for patient to be delivered prior to discharge. Discussed with patient and that the admitting hospice nurse would evaluate for equipment needs at admission and place order at that time. Patient and verbalized understanding. Discussed with patient and that once patient was admitted onto hospice services the goal would be for them to contact us ([facility]) over contacting 911 or presenting back to the hospital/ED. Patient and verbalized understanding. Discussed the tentative discharge plans for today- 05/19/2021 as soon as possible. Patient's states that she will transport patient home in her private vehicle. As such this story writer will not be arranging transportation home for patient. Offered a chance for patient and to ask questions regarding the above of which there were none. Will continue to monitor and follow as appropriate for discharge. Sabina Houser Referral Liaison
--- NOTE | 2021-05-19 14:13 | NUR ---
Patient is to discharge as soon as possible with orders for hospice. Notified ACC (Deborah Rivera), Charge RNs (Laura Hernández and Breonna Ugalde), and bedside RN (Marcela Thrasher) of the above. All are agreeable to the above. Requested discharge orders from hospitalist (Dr. Hassan). Faxed copies of discharge order and med list to [facility]. No further interventions required. Sabina Houser Referral Liaison
--- NOTE | 2021-05-19 15:14 | NUR ---
PT AWAKE AT START OF SHIFT. PLEASANT AND CO-OP WITH CARE. PT'S NOW WANTING TO TAKE PT HOME ON HOSPICE. CABINET WORKER IN TO TALK WITH PT AND . HOSPICE EVAL TO BE DONE. PT CLEARED TO D/C TO HOME. D/C ORDERS PLACED. D/C MEDS FAXED TO [facility], PER REQUEST. D/C INSTRUCTIONS REVIEWED WITH . PT'S ABLE TO TAKE PT HOME. PT ABLE TO HELP A LITTLE WITH GETTING HIMSELF DRESSED. PT ABLE TO TX TO W/C FOR D/C. PT TAKEN OUT VIA W/C TO 'S TRUCK. PT ABLE TO GET INTO TRUCK ON HIS OWN. PT'S BELONGINGS TAKEN OUT BY .
== END 2021-05-19 14:33 | disposition hospice, inpatient (51) | DRG 640 ==
LOC: ER 19:40 → PCU 05-06 01:25 → ERHOLD 05-06 01:25 → PCU 05-06 03:25 → MEDS 05-07 10:34 → PCU 05-08 11:58 → MEDS 05-13 20:54 → ENPENDDIS 05-19 11:16 → MEDS 05-19 14:33
PROVIDERS: Family Medicine; Internal Medicine; ADMIT Internal Medicine
DX: E16.2 Hypoglycemia, unspecified (principal); G93.41 Metabolic encephalopathy; I50.22 Chronic systolic (congestive) heart failure; I13.0 Hypertensive heart and chronic kidney disease with heart failure and stage 1 through stage 4 chronic kidney disease, or unspecified chronic kidney disease; F03.91 Unspecified dementia, unspecified severity, with behavioral disturbance; J96.11 Chronic respiratory failure with hypoxia; N18.4 Chronic kidney disease, stage 4 (severe); I48.91 Unspecified atrial fibrillation; G89.29 Other chronic pain; N40.1 Benign prostatic hyperplasia with lower urinary tract symptoms; R33.8 Other retention of urine; Z66 Do not resuscitate; E66.9 Obesity, unspecified; M25.519 Pain in unspecified shoulder; M54.9 Dorsalgia, unspecified; I25.10 Atherosclerotic heart disease of native coronary artery without angina pectoris; E03.9 Hypothyroidism, unspecified; E78.5 Hyperlipidemia, unspecified; G31.84 Mild cognitive impairment of uncertain or unknown etiology; J44.9 Chronic obstructive pulmonary disease, unspecified; M10.9 Gout, unspecified; K21.9 Gastro-esophageal reflux disease without esophagitis; Z98.890 Other specified postprocedural states; I25.2 Old myocardial infarction; Z88.5 Allergy status to narcotic agent; Z85.51 Personal history of malignant neoplasm of bladder; Z79.890 Hormone replacement therapy; Z79.899 Other long term (current) drug therapy; Z79.01 Long term (current) use of anticoagulants; Z95.5 Presence of coronary angioplasty implant and graft; Z72.0 Tobacco use; Z99.81 Dependence on supplemental oxygen; Z68.30 Body mass index [BMI] 30.0-30.9, adult
CPT/HCPCS: 36415; 72070; 73030; 80048; 80069; 81001; 82947; 83036; 83735; 84206; 84443; 84484; 84681; 85025; 93005; 93010; 94760; 96374; 97116; 97161; 97166; 97530; 97535; 99285; A9270; C8929; J1200; J1630; J2060; J3010; J7060; J7070; J7799; Q9957

== ENCOUNTER 2021-08-10 09:40 | Emergency (ER) | payer MEDICARE, OTHER ==
[~2021-08-10] VITALS: Ht 177.8 cm; Wt 95.2 kg
[~2021-08-10 09:40] MED LIST changes: +ALLOPURINOL100 M1 PO; +COLACE100 MG PO; +DILT60ER PO; +EUTHYROX50 MCG PO; +Flonase 0.05% N16 GM; +GABA100 PO; +LOSA25 PO; +MECL12.5 PO; +MIRALAX17 GM PO; +ONDA4 PO; +QUET25 PO; +ROXICODONE5 MG PO; +Seroquel Xr50 MG PO; +XARELTO15 MG PO
[2021-08-10 10:03] LABS: BASOPHILS ABSOLUTE AUTO 0.06 K/mm3 (0.00-0.23); BASOPHILS PERCENT AUTO 1 % (0-2); EOSINOPHILS ABSOLUTE AUTO 0.31 K/mm3 (0.00-0.68); EOSINOPHILS PERCENT AUTO 3 % (0-6); Hematocrit 40.5 % (37.0-53.0); Hemoglobin 12.5 g/dL (13.5-17.5); IMMATURE GRAN ABSOLUTE AUTO 0.02 K/mm3 (0.00-0.10); IMMATURE GRAN PERCENT AUTO 0 % (0-1); LYMPHOCYTES ABSOLUTE AUTO 1.96 K/mm3 (0.84-5.20); LYMPHOCYTES PERCENT AUTO 22 % (21-46); MONOCYTES ABSOLUTE AUTO 0.78 K/mm3 (0.16-1.47); MONOCYTES PERCENT AUTO 9 % (4-13); Mean Corpuscular HGB 30.6 pg (26.0-34.0); Mean Corpuscular HGB Conc 30.9 g/dL (31.5-36.5); Mean Corpuscular Volume 99 fL (80-100); Mean Platelet Volume 9.8 fL (9.1-12.4); NEUTROPHILS ABSOLUTE AUTO 5.94 K/mm3 (1.96-9.15); NEUTROPHILS PERCENT AUTO 66 % (41-73); Platelet Count 264 K/mm3 (150-400); RDW Coefficient Variation 15.2 % (11.7-14.2); RDW Standard Deviation 54.6 fL (35.1-46.3); Red Blood Cell Count 4.08 M/mm3 (4.30-5.90); White Blood Cell Count 9.07 K/mm3 (4.00-11.30)
[2021-08-10 10:21] LABS: Albumin, Blood 2.9 g/dL (3.4-5.0); Albumin/Globulin Ratio 0.7 (0.8-1.8); Bilirubin, Total 0.6 mg/dL (0.1-1.0); Bun/Creatinine Ratio 13.5 (12.0-20.0); Calcium, Blood 8.6 mg/dL (8.5-10.1); Creatinine, Blood 3.34 mg/dL (0.60-1.20); Total Protein, Blood 6.9 g/dL (6.4-8.2)
[2021-08-10 10:22] LABS: Bicarbonate Venous 31.1 mmol/L (24.0-30.0); PCO2 Venous 62.4 mmHg (38-42); pH Blood Venous 7.36 (7.34-7.37)
== END 2021-08-10 15:02 | disposition home or self-care (01) ==
LOC: ER 09:40
PROVIDERS: Emergency Medicine
DX: R55 Syncope and collapse (principal); R09.02 Hypoxemia; I47.1 Supraventricular tachycardia; E87.6 Hypokalemia; I25.10 Atherosclerotic heart disease of native coronary artery without angina pectoris; I12.9 Hypertensive chronic kidney disease with stage 1 through stage 4 chronic kidney disease, or unspecified chronic kidney disease; I25.2 Old myocardial infarction; N18.9 Chronic kidney disease, unspecified; J44.9 Chronic obstructive pulmonary disease, unspecified; E03.9 Hypothyroidism, unspecified; N40.0 Benign prostatic hyperplasia without lower urinary tract symptoms; E78.5 Hyperlipidemia, unspecified; Z79.899 Other long term (current) drug therapy
CPT/HCPCS: 71045; 80053; 82803; 83880; 84484; 85025; 93005; 93010; A9270

== ENCOUNTER 2021-09-05 18:39 | Emergency (ER) | payer MEDICARE, OTHER ==
[~2021-09-05] VITALS: Ht 177.8 cm; Wt 104.3 kg
[2021-09-05 19:34] LABS: BASOPHILS ABSOLUTE AUTO 0.04 K/mm3 (0.00-0.23); BASOPHILS PERCENT AUTO 1 % (0-2); EOSINOPHILS ABSOLUTE AUTO 0.11 K/mm3 (0.00-0.68); EOSINOPHILS PERCENT AUTO 1 % (0-6); Hematocrit 38.3 % (37.0-53.0); Hemoglobin 12.4 g/dL (13.5-17.5); IMMATURE GRAN ABSOLUTE AUTO 0.04 K/mm3 (0.00-0.10); IMMATURE GRAN PERCENT AUTO 1 % (0-1); LYMPHOCYTES ABSOLUTE AUTO 1.33 K/mm3 (0.84-5.20); LYMPHOCYTES PERCENT AUTO 17 % (21-46); MONOCYTES ABSOLUTE AUTO 0.57 K/mm3 (0.16-1.47); MONOCYTES PERCENT AUTO 7 % (4-13); Mean Corpuscular HGB 30.2 pg (26.0-34.0); Mean Corpuscular HGB Conc 32.4 g/dL (31.5-36.5); Mean Corpuscular Volume 93 fL (80-100); Mean Platelet Volume 10.1 fL (9.1-12.4); NEUTROPHILS ABSOLUTE AUTO 5.74 K/mm3 (1.96-9.15); NEUTROPHILS PERCENT AUTO 73 % (41-73); Platelet Count 247 K/mm3 (150-400); RDW Coefficient Variation 15.2 % (11.7-14.2); RDW Standard Deviation 52.1 fL (35.1-46.3); White Blood Cell Count 7.83 K/mm3 (4.00-11.30)
[2021-09-05 19:55] LABS: Albumin, Blood 3.3 g/dL (3.4-5.0); Albumin/Globulin Ratio 0.9 (0.8-1.8); Bilirubin, Total 0.8 mg/dL (0.1-1.0); Bun/Creatinine Ratio 15.7 (12.0-20.0); Calcium, Blood 8.9 mg/dL (8.5-10.1); Creatinine, Blood 2.81 mg/dL (0.60-1.20); Globulin, Blood 3.8 g/dL (2.2-4.0); Potassium, Blood 3.8 mmol/L (3.5-5.5); Total Protein, Blood 7.1 g/dL (6.4-8.2)
[2021-09-05 20:21] LABS: Magnesium, Blood 2.1 mg/dL (1.6-2.4)
[2021-09-05 21:06] LABS: Influenza A, PCR NEGATIVE (NEGATIVE); Influenza B, PCR NEGATIVE (NEGATIVE); Resp Syncytial Virus, PCR NEGATIVE (NEGATIVE); SARS-Cov-2 (COVID-19) PCR, MMC NEGATIVE (NEGATIVE)
[2021-09-05 22:00] LABS: Source, Urine Clean Catch
[2021-09-05 22:05] LABS: Bilirubin, Urine Neg (Neg); Blood, Urine 3+ (Neg); Glucose Qualitative, Urine Neg (Neg); Ketones, Urine 2+ (Neg); Leukocyte Esterase, Urine 3+ (Neg); Nitrite, Urine Neg (Neg); Protein, Urine 3+ (Neg); Specific Gravity, Urine 1.015 (1.003-1.022); Urobilinogen, Urine NORM (Normal)
[2021-09-05 22:08] LABS: Appearance, Urine Hazy (Clear); Color, Urine Yellow (P-Yellow)
[2021-09-05 22:12] LABS: Bacteria Many /hpf; Squamous Epithelial Cells Few /hpf (Few); White Blood Cells, Urine TNTC /hpf (0-5)
[2021-09-05] MEDS ORDERED: CEPH500 PO (22:56)
[2021-09-05] MEDS ORDERED: ONDA4ODT MM (22:56)
== END 2021-09-05 23:46 | disposition home or self-care (01) ==
LOC: ER 18:39
PROVIDERS: Student in an Organized Health Care Education/Training Program
DX: N39.0 Urinary tract infection, site not specified (principal); I48.91 Unspecified atrial fibrillation; R11.2 Nausea with vomiting, unspecified; I25.10 Atherosclerotic heart disease of native coronary artery without angina pectoris; I25.2 Old myocardial infarction; E03.9 Hypothyroidism, unspecified; I12.9 Hypertensive chronic kidney disease with stage 1 through stage 4 chronic kidney disease, or unspecified chronic kidney disease; N18.9 Chronic kidney disease, unspecified; J44.9 Chronic obstructive pulmonary disease, unspecified; F03.90 Unspecified dementia, unspecified severity, without behavioral disturbance, psychotic disturbance, mood disturbance, and anxiety; Z79.899 Other long term (current) drug therapy; Z79.01 Long term (current) use of anticoagulants; Z79.02 Long term (current) use of antithrombotics/antiplatelets; Z88.5 Allergy status to narcotic agent; Z20.822 Contact with and (suspected) exposure to COVID-19
CPT/HCPCS: 0241U; 36415; 74176; 80053; 81001; 83605; 83690; 83735; 84484; 85025; 93005; 93010; J0696; J2405; J7030

== ENCOUNTER → 2021-10-07 | Outpatient (CLI) | payer MEDICARE, OTHER ==
[~2021-10-07] MED LIST changes: +ONDA4ODT MM
== END | disposition home or self-care (01) ==
LOC: LAB SHORT 12:00
DX: N39.0 Urinary tract infection, site not specified (principal)
CPT/HCPCS: 87086

== ENCOUNTER 2021-11-21 11:09 | Inpatient (IN) | payer OTHER, MEDICARE ==
[~2021-11-21] VITALS: Ht 177.8 cm; Wt 96.8 kg
[2021-11-21] MEDS ORDERED: PANT40 PO (12:11)
[2021-11-21] MEDS ORDERED: RESTORIL15 M1 PO (12:12)
[2021-11-21] MEDS ORDERED: LEVO-T75 MCG PO (12:12)
[2021-11-21] MEDS ORDERED: LOSA50 PO (12:13)
[2021-11-21] MEDS ORDERED: NITR.4SL SL (12:13)
[2021-11-21 12:15] LABS: BASOPHILS ABSOLUTE AUTO 0.03 K/mm3 (0.00-0.23); BASOPHILS PERCENT AUTO 0 % (0-2); EOSINOPHILS ABSOLUTE AUTO 0.03 K/mm3 (0.00-0.68); EOSINOPHILS PERCENT AUTO 0 % (0-6); Hematocrit 36.3 % (37.0-53.0); Hemoglobin 11.4 g/dL (13.5-17.5); IMMATURE GRAN ABSOLUTE AUTO 0.06 K/mm3 (0.00-0.10); IMMATURE GRAN PERCENT AUTO 1 % (0-1); LYMPHOCYTES ABSOLUTE AUTO 1.06 K/mm3 (0.84-5.20); LYMPHOCYTES PERCENT AUTO 9 % (21-46); MONOCYTES ABSOLUTE AUTO 1.29 K/mm3 (0.16-1.47); MONOCYTES PERCENT AUTO 11 % (4-13); Mean Corpuscular HGB 28.4 pg (26.0-34.0); Mean Corpuscular HGB Conc 31.4 g/dL (31.5-36.5); Mean Corpuscular Volume 91 fL (80-100); Mean Platelet Volume 10.2 fL (9.1-12.4); NEUTROPHILS ABSOLUTE AUTO 8.93 K/mm3 (1.96-9.15); NEUTROPHILS PERCENT AUTO 78 % (41-73); NRBC ABSOLUTE 0.05 K/mm3 (0.00-0.02); NRBC Auto 0.4 /100 WBC (0.0-0.2); Platelet Count 339 K/mm3 (150-400); RDW Coefficient Variation 16.5 % (11.7-14.2); RDW Standard Deviation 54.5 fL (35.1-46.3); Red Blood Cell Count 4.01 M/mm3 (4.30-5.90)
[2021-11-21] MEDS ORDERED: Norco 10-325 T1 EACH PO (12:15)
[2021-11-21] MEDS ORDERED: POTCHL20ER PO (12:16)
[2021-11-21 12:28] LABS: International Normalized Ratio 1.33; Prothrombin Time Results 13.7 Sec (9.7-11.5)
[2021-11-21 12:33] LABS: Albumin, Blood 3.2 g/dL (3.4-5.0); Albumin/Globulin Ratio 0.9 (0.8-1.8); Calcium, Blood 8.7 mg/dL (8.5-10.1); Creatinine, Blood 2.84 mg/dL (0.60-1.20); Globulin, Blood 3.5 g/dL (2.2-4.0); Potassium, Blood 4.6 mmol/L (3.5-5.5); Total Protein, Blood 6.7 g/dL (6.4-8.2)
[2021-11-21 16:03] LABS: Source, Urine Clean Catch
[2021-11-21 16:05] LABS: Appearance, Urine Clear (Clear); Bilirubin, Urine Neg (Neg); Blood, Urine Neg (Neg); Color, Urine Yellow (P-Yellow); Glucose Qualitative, Urine Neg (Neg); Ketones, Urine Neg (Neg); Leukocyte Esterase, Urine Neg (Neg); Nitrite, Urine Neg (Neg); Protein, Urine 3+ (Neg); Specific Gravity, Urine 1.015 (1.003-1.022); Urobilinogen, Urine NORM (Normal)
[2021-11-21 16:14] LABS: Bacteria Few /hpf; Hyaline Casts 0-2 /lpf (0-2); Red Blood Cells, Urine 0-2 /hpf (0-2); Squamous Epithelial Cells Rare /hpf (Few)
--- NOTE | 2021-11-21 17:04 | NUR ---
PT ARRIVED TO UNIT, ABLE TO SELF TRANSFER TO BED. PT ALERT AND ORIENTED, VSS, ON 3 L O2 VIA NASAL CANNULA WHICH IS THE PATIENT'S BASELINE. PT HAS A HISTORY OF [facility], PT STATED THAT HIS WOULD PROVIDE MEDICAL HISTORY AND MEDICATION LIST. BED IN LOW POSITION, CALL LIGHT WITHIN REACH. RENAY, JESS.
[2021-11-21 17:57] LABS: Hematocrit 35.1 % (37.0-53.0); Hemoglobin 11.2 g/dL (13.5-17.5)
--- NOTE | 2021-11-21 18:50 | NUR ---
NO ACUTE EVENT SINCE ARRIVAL TO UNIT. PT RESTING COMFORTABLY IN BED. ABLE TO USE URINAL INDEPEDENTLY IN BED.
[2021-11-22 04:28] LABS: BASOPHILS ABSOLUTE AUTO 0.05 K/mm3 (0.00-0.23); BASOPHILS PERCENT AUTO 1 % (0-2); EOSINOPHILS ABSOLUTE AUTO 0.13 K/mm3 (0.00-0.68); EOSINOPHILS PERCENT AUTO 2 % (0-6); Hematocrit 33.5 % (37.0-53.0); Hemoglobin 10.5 g/dL (13.5-17.5); IMMATURE GRAN ABSOLUTE AUTO 0.03 K/mm3 (0.00-0.10); IMMATURE GRAN PERCENT AUTO 0 % (0-1); LYMPHOCYTES ABSOLUTE AUTO 1.06 K/mm3 (0.84-5.20); LYMPHOCYTES PERCENT AUTO 13 % (21-46); MONOCYTES ABSOLUTE AUTO 0.98 K/mm3 (0.16-1.47); MONOCYTES PERCENT AUTO 12 % (4-13); Mean Corpuscular HGB 28.2 pg (26.0-34.0); Mean Corpuscular HGB Conc 31.3 g/dL (31.5-36.5); Mean Corpuscular Volume 90 fL (80-100); Mean Platelet Volume 10.3 fL (9.1-12.4); NEUTROPHILS ABSOLUTE AUTO 6.23 K/mm3 (1.96-9.15); NEUTROPHILS PERCENT AUTO 73 % (41-73); NRBC ABSOLUTE 0.03 K/mm3 (0.00-0.02); NRBC Auto 0.4 /100 WBC (0.0-0.2); Platelet Count 257 K/mm3 (150-400); RDW Coefficient Variation 16.3 % (11.7-14.2); RDW Standard Deviation 53.1 fL (35.1-46.3); Red Blood Cell Count 3.73 M/mm3 (4.30-5.90); White Blood Cell Count 8.48 K/mm3 (4.00-11.30)
[2021-11-22 04:49] LABS: Albumin, Blood 2.8 g/dL (3.4-5.0); Albumin/Globulin Ratio 0.9 (0.8-1.8); Bilirubin, Total 1.1 mg/dL (0.1-1.0); Bun/Creatinine Ratio 19.6 (12.0-20.0); Calcium, Blood 8.1 mg/dL (8.5-10.1); Creatinine, Blood 2.7 mg/dL (0.60-1.20); Globulin, Blood 3.2 g/dL (2.2-4.0); Potassium, Blood 4.3 mmol/L (3.5-5.5)
--- NOTE | 2021-11-22 06:04 | NUR ---
SHIFT SUMMARY: PT REMAINS ORIENTED TO SELF ONLY, ALERT. STATING "ELIZABETHE AM I, I DON'T REMEMBER THIS ROOM". REORIENTED BUT FORGETFUL. DENIES ANY SOB OR CHEST PAIN DURING SHIFT. HR MAINTAING IN 140'S UNABLE TO PROVIDE HOME DOSE OF CARDIZEM AND METROPOLOL. HR NOW IN THE 80'S IN A-FIB RHYTHM. VOIDING IN UNRINAL WITHOUT DIFFICULTY. PROTONIX GTT INFUSING ORDERED. NO COMPLAINTS OF NAUSEA DURING SHIFT, REQUESTING TO EAT, NEEDING REORIENTED TO CLEAR LIQUID DIET.
--- NOTE | 2021-11-22 07:51 | NUR ---
Received report from Noc RN. Patient awake in bed when entering room for report. He is oriented to self and very unclear of rest. He is on 3L via NC and sats >90%. He has 20ga IV in LAC and is infusing Protonix at 10 ml/hr. He is pleasantly confused and refers to for answers. He is in A-fib 80-100's He uses urinal with some dexdarity problems aligning to uses and has been informed to call for assistance. He is a one person full assist and he is unstable independently. He is on clear liquids until GI has seen and assessed.
--- NOTE | 2021-11-22 10:00 | NUR ---
Patient resting in bed awaiting GI. Patients in room and we updated meds. He tolerated PO meds with water. Protinix infusing at 10 ml/hr. Patient has no imediate needs.
--- NOTE | 2021-11-22 11:23 | NUR ---
Patient up to bathroom with 1 full assist. he continues to have formed dark stools black in color. remains at bedside. VSS, slightly hypertensive, A-Fib 90's. he assist with positioniing in bed. He denies any current needs.
--- NOTE | 2021-11-22 14:33 | NUR ---
11/22/21 [address] LYNN; SEE ANESTHESIA RECORDS.
--- NOTE | 2021-11-22 14:47 | NUR ---
Day surgery came to get patient for EGD. showed up shortly after and is waiting in room for him to return.
--- NOTE | 2021-11-22 15:45 | NUR ---
Patient back from EGD and came back on BIPAP and shortly transferred to RI at 3L O2 and sats >90%. VSS. at bedside. He has been advanced top Full liquid diet. Protonix chnged to BID and gtt dc'd.
--- NOTE | 2021-11-22 17:30 | NUR ---
Louise has been doing well since back from EGD. He remains on 4L O3 via NC and sats >90%. He ate clear liquid diet in full and is sitting up watching TV. protonix has been stopped and is BID IV. He is anxious to go home and he opes for tomorrow. He is one full assist when up ambulating with cane. He uses urinal appropriately.
--- NOTE | 2021-11-23 05:11 | NUR ---
PT ALERT AND ORIENTED TO SELF THIS SHIFT. IRRITABLE AND AGITATED A MAJORITY OF THE NIGHT. AT APPROX 2300 PT BECAME INCREASINGLY AGITATED AND CONFUSED AND HIT THIS RN. CHARGE NURSE AND THIS RN GOT PT BACK TO BED AND PLACE CALLED TO MD. ORDER FOR SBWR RECEIVED, Q2 HOURLY ASSESSMENTS DONE. HR AND BP STABLE, AFEBRILE, PT ON 4 L NC SATING >94%. PT UP TO VOID MUTIPLE TIMES THROUGHOUT THE NIGHT. PT RESPOS FREQUENTLY. PT CURRENTLY SITTING IN BED, WATCHING TV. WILL REPORT TO ONCOMING RN.
[2021-11-23 07:58] LABS: Hematocrit 34.7 % (37.0-53.0); Hemoglobin 10.6 g/dL (13.5-17.5); Mean Corpuscular HGB 27.6 pg (26.0-34.0); Mean Corpuscular HGB Conc 30.5 g/dL (31.5-36.5); Mean Corpuscular Volume 90 fL (80-100); Mean Platelet Volume 10.2 fL (9.1-12.4); NRBC ABSOLUTE 0.02 K/mm3 (0.00-0.02); NRBC Auto 0.2 /100 WBC (0.0-0.2); Platelet Count 254 K/mm3 (150-400); RDW Coefficient Variation 16.4 % (11.7-14.2); RDW Standard Deviation 54.1 fL (35.1-46.3); Red Blood Cell Count 3.84 M/mm3 (4.30-5.90); White Blood Cell Count 9.32 K/mm3 (4.00-11.30)
[2021-11-23] MEDS ORDERED: Seroquel Xr50 MG PO (08:02)
[2021-11-23] MEDS ORDERED: SEROQUEL25 MG PO (08:03)
[2021-11-23 08:19] LABS: Bun/Creatinine Ratio 18.3 (12.0-20.0); Calcium, Blood 8.6 mg/dL (8.5-10.1); Creatinine, Blood 2.62 mg/dL (0.60-1.20)
--- NOTE | 2021-11-23 12:36 | NUR ---
DISCHARGE PT DISCHARGED IN [facility] PAPERWORK WENT OVER, COMPLETED AND SIGNED. PT AND FAMILY VERBALIZED UNDERSTANDING OF F/U IN ONE WEEK WITH PCP AND MEDICATION CHANGES. PT LEFT UNIT IN WHEELCHAIR WITH AND STAFF ASSISTANCE. SIGNED PAPERWORK IN CHART
== END 2021-11-23 12:30 | disposition home or self-care (01) | DRG 393 ==
LOC: ER 11:09 → PCU 14:26
PROVIDERS: Internal Medicine; Nurse Practitioner Acute Care; Physician Assistant; Student in an Organized Health Care Education/Training Program; ADMIT Family Medicine
PROC: 0DJ08ZZ Inspection of Upper Intestinal Tract, Via Natural or Artificial Opening Endoscopic (ICD-10-PCS; principal; 2021-11-22 14:00)
DX: K31.7 Polyp of stomach and duodenum (principal); I50.23 Acute on chronic systolic (congestive) heart failure; K92.1 Melena; N18.4 Chronic kidney disease, stage 4 (severe); I13.0 Hypertensive heart and chronic kidney disease with heart failure and stage 1 through stage 4 chronic kidney disease, or unspecified chronic kidney disease; F11.20 Opioid dependence, uncomplicated; J96.11 Chronic respiratory failure with hypoxia; Z98.890 Other specified postprocedural states; Z51.5 Encounter for palliative care; Z66 Do not resuscitate; I25.10 Atherosclerotic heart disease of native coronary artery without angina pectoris; Z79.02 Long term (current) use of antithrombotics/antiplatelets; G30.9 Alzheimer's disease, unspecified; K44.9 Diaphragmatic hernia without obstruction or gangrene; K64.8 Other hemorrhoids; R74.8 Abnormal levels of other serum enzymes; E03.9 Hypothyroidism, unspecified; M10.9 Gout, unspecified; N40.1 Benign prostatic hyperplasia with lower urinary tract symptoms; J44.9 Chronic obstructive pulmonary disease, unspecified; E78.00 Pure hypercholesterolemia, unspecified; F02.80 Dementia in other diseases classified elsewhere, unspecified severity, without behavioral disturbance, psychotic disturbance, mood disturbance, and anxiety; G89.29 Other chronic pain; I48.91 Unspecified atrial fibrillation; K25.9 Gastric ulcer, unspecified as acute or chronic, without hemorrhage or perforation; I25.2 Old myocardial infarction; Z85.51 Personal history of malignant neoplasm of bladder; Z95.5 Presence of coronary angioplasty implant and graft; Z88.5 Allergy status to narcotic agent; Z79.51 Long term (current) use of inhaled steroids; Z79.01 Long term (current) use of anticoagulants; Z79.899 Other long term (current) drug therapy
CPT/HCPCS: 36415; 71045; 74177; 80048; 80053; 81001; 82272; 83690; 83880; 85014; 85018; 85025; 85027; 85610; 86850; 86900; 86901; 93005; 93010; 94660; 94760; 94762; 96365-59; 96375; 96376; 99285-25; A9270; C9113; J2704; J7030; J7120; Q9967

== ENCOUNTER 2021-12-13 16:12 | Inpatient (IN) | payer OTHER ==
[~2021-12-13] VITALS: Ht 177.8 cm; Wt 95.2 kg
[~2021-12-13 16:12] MED LIST changes: +LEVO-T75 MCG PO; +NITR.4SL SL; +Norco 10-325 T1 EACH PO; +POTCHL20ER PO; +RESTORIL15 M1 PO; +SEROQUEL25 MG PO
[2021-12-13 17:37] LABS: BASOPHILS ABSOLUTE AUTO 0.02 K/mm3 (0.00-0.23); BASOPHILS PERCENT AUTO 0 % (0-2); EOSINOPHILS ABSOLUTE AUTO 0.08 K/mm3 (0.00-0.68); EOSINOPHILS PERCENT AUTO 1 % (0-6); Hemoglobin 11.6 g/dL (13.5-17.5); IMMATURE GRAN ABSOLUTE AUTO 0.06 K/mm3 (0.00-0.10); IMMATURE GRAN PERCENT AUTO 1 % (0-1); LYMPHOCYTES ABSOLUTE AUTO 0.58 K/mm3 (0.84-5.20); LYMPHOCYTES PERCENT AUTO 5 % (21-46); MONOCYTES ABSOLUTE AUTO 0.95 K/mm3 (0.16-1.47); MONOCYTES PERCENT AUTO 9 % (4-13); Mean Corpuscular HGB Conc 30.5 g/dL (31.5-36.5); Mean Corpuscular Volume 88 fL (80-100); Mean Platelet Volume 10.6 fL (9.1-12.4); NEUTROPHILS ABSOLUTE AUTO 9.44 K/mm3 (1.96-9.15); NEUTROPHILS PERCENT AUTO 85 % (41-73); Platelet Count 311 K/mm3 (150-400); RDW Coefficient Variation 17.6 % (11.7-14.2); RDW Standard Deviation 56.4 fL (35.1-46.3); White Blood Cell Count 11.13 K/mm3 (4.00-11.30)
[2021-12-13] MEDS ORDERED: FINA5 PO (17:40)
[2021-12-13] MEDS ORDERED: XARELTO15 M1 PO (17:40)
[2021-12-13 17:50] LABS: Albumin, Blood 2.7 g/dL (3.4-5.0); Albumin/Globulin Ratio 0.7 (0.8-1.8); Bilirubin, Total 0.8 mg/dL (0.1-1.0); Bun/Creatinine Ratio 19.6 (12.0-20.0); Calcium, Blood 8.2 mg/dL (8.5-10.1); Creatinine, Blood 2.3 mg/dL (0.60-1.20); Globulin, Blood 3.8 g/dL (2.2-4.0); Potassium, Blood 4.9 mmol/L (3.5-5.5); Total Protein, Blood 6.5 g/dL (6.4-8.2)
[2021-12-13 18:05] LABS: International Normalized Ratio 1.16; Prothrombin Time Results 12.1 Sec (9.7-11.5)
[2021-12-13 20:17] LABS: Source, Urine Foley catheter
[2021-12-13 20:29] LABS: Bilirubin, Urine Neg (Neg); Blood, Urine Neg (Neg); Glucose Qualitative, Urine Neg (Neg); Ketones, Urine Neg (Neg); Leukocyte Esterase, Urine Neg (Neg); Nitrite, Urine Neg (Neg); Protein, Urine 3+ (Neg); Urobilinogen, Urine NORM (Normal)
[2021-12-13 20:30] LABS: Appearance, Urine Clear (Clear); Color, Urine Yellow (P-Yellow)
[2021-12-13 20:32] LABS: Bacteria Rare /hpf; Red Blood Cells, Urine Not Seen /hpf (0-2); Squamous Epithelial Cells Few /hpf (Few); White Blood Cells, Urine Not Seen /hpf (0-5)
--- NOTE | 2021-12-14 02:56 | NUR ---
DURING ADMISSION WAS A/OX3; DISORIENTED TO SITUATION. (UNABLE TO RECALL ADMIT REASON) A/OX1; SELF ONLY AT THIS TIME - WOKE DISORIENTED TO PLACE LATER IN SHIFT. FORGETFUL AND IMPULSIVE AT TIMES. PLEASANT AND COOPERATIVE. DENIES PAIN AT THIS TIME. C/O FEELING NAUSEATED DURING SKIN CHECK /LINEN REMOVAL (AFTER TRANSFER FROM [facility]). DECLINED PRN ANTIEMETIC; STATES "IT IS FINE WHEN YOU STOP ROLLING ME BACK AND FORTH" PER ED RN PATIENT IS SBA TO BSC; NOT OUT OF BED THIS SHIFT. CHRISS PATENT. SLEEP PROMOTED. BED ALARM SET. CALL LIGHT IN REACH (OFTEN FORGETS TO USE AND YELLS OUT); ENCOURAGED TO MAKE NEEDS KNOWN.
[2021-12-14 05:13] LABS: BASOPHILS ABSOLUTE AUTO 0.02 K/mm3 (0.00-0.23); BASOPHILS PERCENT AUTO 0 % (0-2); EOSINOPHILS ABSOLUTE AUTO 0.06 K/mm3 (0.00-0.68); EOSINOPHILS PERCENT AUTO 1 % (0-6); Hematocrit 39.7 % (37.0-53.0); Hemoglobin 11.5 g/dL (13.5-17.5); IMMATURE GRAN ABSOLUTE AUTO 0.08 K/mm3 (0.00-0.10); IMMATURE GRAN PERCENT AUTO 1 % (0-1); LYMPHOCYTES ABSOLUTE AUTO 0.61 K/mm3 (0.84-5.20); LYMPHOCYTES PERCENT AUTO 6 % (21-46); MONOCYTES ABSOLUTE AUTO 0.91 K/mm3 (0.16-1.47); MONOCYTES PERCENT AUTO 8 % (4-13); Mean Corpuscular HGB 25.7 pg (26.0-34.0); Mean Corpuscular Volume 89 fL (80-100); Mean Platelet Volume 9.8 fL (9.1-12.4); NEUTROPHILS ABSOLUTE AUTO 9.16 K/mm3 (1.96-9.15); NEUTROPHILS PERCENT AUTO 85 % (41-73); Platelet Count 308 K/mm3 (150-400); RDW Coefficient Variation 17.6 % (11.7-14.2); RDW Standard Deviation 56.3 fL (35.1-46.3); Red Blood Cell Count 4.48 M/mm3 (4.30-5.90); White Blood Cell Count 10.84 K/mm3 (4.00-11.30)
[2021-12-14 05:46] LABS: Albumin, Blood 2.7 g/dL (3.4-5.0); Albumin/Globulin Ratio 0.7 (0.8-1.8); Bilirubin, Total 1.1 mg/dL (0.1-1.0); Bun/Creatinine Ratio 20.5 (12.0-20.0); Calcium, Blood 8.6 mg/dL (8.5-10.1); Creatinine, Blood 2.34 mg/dL (0.60-1.20); Globulin, Blood 3.8 g/dL (2.2-4.0); Potassium, Blood 4.7 mmol/L (3.5-5.5); Total Protein, Blood 6.5 g/dL (6.4-8.2)
--- NOTE | 2021-12-14 07:19 | NUR ---
multiple small clots irrigated (approx 300 mL instilled and removed) at 0645.
--- NOTE | 2021-12-14 07:56 | NUR ---
RN NOTE MR JAIMEE IS CONFUSED, YELLING OUT VERY LOUDLY. BLOOD PRESSURE HIGH, BUT UNABLE TO CALM PT AND HR [address] MONTEIRO NOTIFIED AND HALDOL 2.5MG IV X 1 ORDERED. READ BACK DONE AND ENTERED INTO [facility].
--- NOTE | 2021-12-14 11:32 | NUR ---
RN NOTE CALLED DR MONTEIRO WITH NEW BP AND HR RESULTS. PT IS CALMER THAN EARLIER, BUT STILL AGITATED. AT BEDSIDE. DR MONTEIRO SAID PT CAN HAVE CLEAR LIQUID DIET, ADVANCE TO LOW SODIUM DIET IF HE TOLERATES FLUIDS. SHE GAVE ME A TELEPHONE ORDER FOR 5MG LABETALOL IV X1 NOW. READ BACK DONE AND ORDER INTO [employer].
--- NOTE | 2021-12-14 13:19 | NUR ---
RN NOTE MEDICATION LIST REVIEWED WITH LEIA PT'S / SHE SAID THAT SHE RAN OUT OF SEREQUIL 2 MONTHS AGO SO HE HAS NOT BEEN TAKING IT. SHE SAID HE HAS NOT BEEN ON XARELTO SINCE BEING TOLD NOT TO TAKE IT BY GI DOCTOR.
--- NOTE | 2021-12-14 14:09 | NUR ---
RN NOTE BANERJEE CATHETER WAS IRRIGATED WITH 120CC STERILE WATER AT 1300HRS. EASY FLUSH AND RETURN WITH VERY SMALL BLOOD CLOTS IN THE RETURN.
--- NOTE | 2021-12-14 14:14 | NUR ---
RN NOTE CALLED DR MONTEIRO AND LET HER KNOW THAT HR STILL 130, BP POST LABETALOL, THAT PT IS STILL AGITATED AND THAT HIS SAID HE'S BEEN OUT OF SEREQUIL FOR A COUPLE OF MONTHS SO HAS NOT BEEN GETTING IT. DR MONTEIRO SAID SHE WILL ENTER PRN SEROQUIL ORDERS.
--- NOTE | 2021-12-14 16:14 | NUR ---
RN NOTE BP STILL HIGH AND HR REMAINS 130 DESPITE MEDICATIONS GIVEN. PT ABDOMINAL BREATHING, HEAVIER RESPIRATIONS. RT CAME TO THE ROOM TO DO ASSESSMENT AND GIVE TREATMENT. PT C/O ABDOMINAL PAIN, ON ASSESSMENT ACROSS UPPER ABDOMEN. FENTANYL 50MCG IV GIVEN WITH GOOD RESPONSE HE SAID HE NO LONGER HAS PAIN.
--- NOTE | 2021-12-14 16:17 | NUR ---
ADDN - BLADDER IRRIGATION DONE AGAIN AT 1530 HRS IN CASE IT WAS RELATED TO ABDOMINAL PAIN. FLUSH OF 120CC RETURNED CLEAR.
--- NOTE | 2021-12-14 17:01 | NUR ---
SHIFT SUMMARY SEE PRIOR NOTE. MR HERMOSILLO HAS BEEN AGITATED A LOT OF THE DAY. SOFT WRIST RESTRAINTS IN PLACE ALL DAY, PT PULLING AT BANERJEE, OXYGEN AND TELEMETRY. PT WAS YELLING LOUDLY THIS MORNING, BUT IS QUIETER LATER IN THE DAY, STILL RESTLESS AND AGITATED THOUGH. GIVEN IV HALDOL AND PO SEREQUIL FOR AGITATION. BLOOD PRESSURE WAS HIGH FOR MOST OF THE DAY, LAST READING IMPROVED. SEE MAR FOR MEDS. ON TELEMETRY IN ST 130S UNTIL 1640 WHEN RATE 90-110. RESP RATE ELEVATED TO 24 PER MINUTE, ABDOMINAL BREATHING, INC WORK OF BREATHING. RT GAVE TREATMENT. FENTANYL GIVEN FOR C/O ABDOMINAL PAIN AT SAME TIME. AT 1640 O2 SAT DROPPED TO 84-86% ON 4L NC. INCREASED TO 6L (AT 90% SAT) WHICH ON RECHECK WAS IN THE 80S. RT AT BEDSIDE.
--- NOTE | 2021-12-14 17:27 | NUR ---
RN NOTE CALLED DR MONTEIRO AT 1513. PT WAS ON 15L NRBM AT THE TIME OF THE CALL. STATUS UPDATE TO DR MONTEIRO. HE WAS AWAKE, ALERT, NO CHANGE IN MENTAL STATUS. 20MG IV LASIX ORDERED, READ BACK DONE, ORDER ENTERED INTO [employer], LASIX GIVEN. PT NOW RESTING ON 10L NRBM SATS AT 97%.
--- NOTE | 2021-12-14 18:10 | NUR ---
RN NOTE ON CONTINUOUS PULSE OX, 94% SAT ON 13L NRBM.
--- NOTE | 2021-12-15 02:31 | NUR ---
REMOVED RESTRAINTS AND DC'D RESTRAINT ORDER AT 0230. PT APPEARS TO BE CALMER AND MORE COOPERATIVE WITH RESTRAINTS OFF.
--- NOTE | 2021-12-15 04:50 | NUR ---
SHIFT SUMMARY 86 YR M ADMITTED ON 12/14/21 FOR JOCELYN PLEURAL EFFUSIONS. DNR. PT WAS IN SOFT WRIST RESTRAINTS COMING INTO THIS SHIFT FOR AGITATION AND PULLING AT BANERJEE, O2 MASK AND IV. HE WAS QUITE AGITATED AT BEGINNING OF SHIFT AND WAS YELLING LOUDLY ASKING FOR HELP AND TO HAVE HIS HANDS FREED. THIS NURSE AND THE FRONT OFFICE ASSOCIATE SPENT TIME TALKING TO PT AND HE EXPRESSED THAT HIS AGITATION WAS FROM BEING CONFINED BY THE WRIST RESTRAINTS, THE O2 MASK, AND SCD'D. EVEN THOUGH HE IS CONFUSED, HE AGREED TO NOT MESS WITH HIS LINES IF HIS WRIST RESTRAINTS WERE REMOVED. RESTRAINT ORDER WAS DC'D AT 0230 AND SCD'S WERE TEMPORARILY REMOVED AND O2 MASK WAS REPLACED WITH NASAL CANULA. THESE INTERVENTIONS MADE THE PT NOTICABLY CALMER AND MORE COMFORTABLE. IT HAS BEEN SEVERAL HOURS NOW AND PT HAS BEEN COOPERATIVE AND HAS NOT PULLED AT HIS BANERJEE, TELE, OR NASAL CANULA. SATS ARE MAINTAINING IN THE 90'2 W/ NASAL CANULA @8L. HE HAS SLEPT OFF AND ON FOR THE PAST SEVERAL HOURS WELL.
--- NOTE | 2021-12-15 09:17 | NUR ---
CALLED DR DIEGO OSBORN TELE PT HAS A NEW SECOND DEGREE TYPE 2 AV BLOCK THAT SEEMS TO BE VISIBLE FOR THE FIRST TIME THIS MORNING AROUND 0100. MD AWARE NOW RECIEVED A NEW ORDER FOR STAT EKG. MD MADE AWARE OF HR ISSUES THIS AM THAT SEEMED TO HAVE RESOLVED WITH THE ADMINISTRATION OF SCHEDULED MORNING MEDICATIONS. HR CURRENTLY 106.
--- NOTE | 2021-12-15 12:45 | NUR ---
PT O2 SATS ON CONT BIOX WERE DROPPING TO 85%. CALLED RT SHARRON. PT WAS ON OXIMIEZER AT 8L AT THAT TIME. PLACED IT IN THE PT MOUTH IN THE EVENT THAT HE WAS MOUTH BREATHING, SATS WENT UP TO 89% AND REDUCED BACK DOWN SLOWLY. FLOW INCREASED TO 11L SATS UP TO 87% GOOD WAVE FORM ON THE MONITOR. PT SAID HE FELT LIKE HE WAS HAVING DIFFICULTY GETTING ENOUGH AIR, NOT IN OBVIOUS DISTRESS. PLACED THE PT BACK ON NONREBREATHER AT 12L SATS INCREASED TO 94% AFTER 10 MINUTES, REDUCED FLOW TO 10L SATS MAINTAINING AT 94%.
--- NOTE | 2021-12-15 13:40 | NUR ---
PT SATS ARE UP IN THE MID 90'S, HE WAS APPEARING A BIT UNCOMFORTABLE LAID THE HOB DOWN A LITTLE FOR HIM, SATS CURRENTLY HOLDING AT 96% WILL CTM. THIS MORNING AT THE START OF THE SHIFT PT SATS WERE MAINTAINING AT 94% ON 8L VIA OXIMEIZER. CURRENTLY ON 10L NONREBREATHER.
--- NOTE | 2021-12-15 15:09 | NUR ---
CALLED DR MONTEIRO- PT IS NOT GOING TO BE ABLE TO HAVE THE THORACENTESIS UNTIL TOMORROW HE CAN NOT CONSENT FOR IT. SPOKE TO DR MONTEIRO, SHE IS AWARE. PT IS ON O2 NON REBREATHER AT 10L AT THIS TIME SPOKE TO DR MONTEIRO SHE IS AWARE, THERE IS NO ORDER FOR CONTINUIOUS OXIMIETRY, RECIEVED AN ACTIVE ORDER FOR O2 AND CONT OXIMIETRY. RT IS AWARE OF PT STATUS FROM EARLIER CONVERSATION. WILL CTM.
--- NOTE | 2021-12-15 15:32 | NUR ---
PT BIOX WAS ALARMING O2 SATS WERE 80%, PT HAD REMOVED NONREBREATHER AND WAS HOLDING IT IN FRONT OF HIS FACE. PT STATED HE WANTS TO GET OUT OF BED. RN AND INSPECTOR PLUG SEAM ASSISTED THE PT OOB TO THE RECLINER WITH A CHAIR ALARM VIA THE CIELING LIFT. O2 SATS IMPROVED AFTER PT WAS REPOSITIONED TO THE CHAIR AND PLACED ON 12L VIA NRB. O2 SATS MAINTAINING AT THIS TIME AT 91%. WILL CTM.
--- NOTE | 2021-12-15 16:51 | NUR ---
SHIFT SUMMARY- PT RESPIRATORY STATUS HAS CHANGED THIS SHIFT. CARDIAC RYTHM STRIP IN THE FRONT OF CHART FROM THE CHANGE IN RYTHM. PT HR IS MORE CONTROLED AT THIS TIME. PT ALERT TO SELF BUT VERY CONFUSED. PT DECIDED AT THE END OF THE DAY HE WANTED TO GET UP OUT OF BED AND SIT IN A CHAIR, ALTHOUGH HE IS NOT ABLE TO STAND (PER PT). PT WAS ASSISTED TO SIT IN THE RECLINER VIA CIELING LIFT WITH 2 STAFF MEMBERS FOR PT SAFETY. PT IS CURRENTLY ON 12L VIA NON REBREATHER (SEE PREVIOUS NOTES FOR DETAILS). PT CURRENTLY UP SITTING IN A RECLINER NO CURRENT S&S OF DISTRESS NOTED, WILL CTM AND PASS ON IN REPORT TO NIGHT RN.
--- NOTE | 2021-12-15 18:00 | NUR ---
BLADDER IRRIGATION ORDERED Q6 PRN- URINE OUTPUT WAS GOOD T/O THE SHIFT. AT THE END OF THE SHIFT (1800) IT WAS NOTED THAT THERE WERE CLOTS IN THE PT URINE. BLADDER IRRIGATION WAS PERFORMED, STERILE WATER WAS FLUSHED INTO THE CATH WITH NO RETURN, PISTON SYRINGE USED FOR A SECOND FLUSH AND THE PT BEGAN PASSING URINE RETURN WAS HAD AT THAT TIME, NO MORE VISIBLE CLOTS, BLADDER SCAN PERFORMED WHEN NO RETURN WAS RECIEVED ON 18ML WAS SEEN. BANERJEE IS CURRENTLY DRAINING.
--- NOTE | 2021-12-15 18:26 | NUR ---
RECIEVED A CALL FROM TELE- PER RADIO REPAIRMAN FRANKIE HE IS NOW SEEING WHAT APPEARS TO BE A THIRD DEGREE AV BLOCK. RADIO REPAIRMAN JESSA IS NOW COMING ON SHIFT AND WILL REVIEW RADIO REPAIRMAN FRANKIE SAW THIS DURING SHIFT CHANGE. ONCE OFFICIAL READ IS DONE, WILL NOTIFY MD IF THERE IS A CHANGE FROM PREVIOUS.
--- NOTE | 2021-12-15 22:38 | NUR ---
PHYSICIAN CONTACT PATIENT SWITCHED TO NON-REBREATHER, SATURATIONS AT 82%. INCREASED ONCE NRB PLACED AT 12L. PATIENT SUSTAINED SATURATIONS FOR ABOUT AN 1 1/2HRS. THEN SATURATIONS DROPPED TO 85-90%. PATIENT WORK OF BREATHING INCREASED. RT CALLED, WANT BIPAP ORDERS. CALL PLACED TO , NEW ORDERS FOR CPAP/BIPAP. RT CAME TO PLACE BIPAP WITH 12L BLEED IN, PATIENT SUSTAINING SATS AT 93% NOW. PATIENT WANTING TO TAKE MASK OFF, PATIENT EDUCATED ON NEED.
--- NOTE | 2021-12-16 02:04 | NUR ---
PHYSICIAN CONTACT PATIENT NOT TOLERATING MASK, CONTINUOUSLY TAKING IT OFF. WHEN BIPAP MASK ON, PATIENT MAINTAINS SATURATIONS AT 93%. PATIENT HAVING INCREASED CONFUSION, HALLUCINATIONS, WORK OF BREATHING INCREASED WITH ANY ACTIVITY. CALLED, NEW ORDERS FOR ONE TIME DOSE OF ZYPREXA 5MG IM. GIVEN AT 0010. PATIENT STILL PULLING AT MASK, CHRISS, TELE. 0130, CALLED FOR CONTINUED AGITATION WITH BIPAP MASK AND LINES, ZYPREXA NOT EFFECTIVE. ONE TIME DOSE OF ROXANOL 5MG SL ORDERED. GIVEN AT 0155, NO REACTION NOTED. AT THIS TIME, PATIENT STILL PULLING AT MASK, WILL CONTINUE TO MONITOR AND NOTIFY
--- NOTE | 2021-12-16 04:44 | NUR ---
PHYSICIAN CONTACT PATIENT CONTINUES TO NOT TOLERATE THE BIPAP MASK. NOSE GUARD PLACED ON PATIENT FOR COMFORT. PATIENT TAKES 5+ MINUTES TO RECOVER WHEN MASK IS REMOVED. PATIENT STILL CONFUSED AND HALLUCINATING, PULLING ON MASK, TELE, BANERJEE. DR CALLED AT 0350, NEW ORDERS FOR 0.5MG ATIVAN IV ONCE. MEDICATION GIVEN. AFTER 30 MINUTES, PATIENT STILL PULLING ON MASK, TELE, BANERJEE. ANOTHER 0.5MG ATIVAN IV ONCE GIVEN PER DR ORDER. WILL CONTINUE TO MONITOR.
[2021-12-16 05:04] LABS: Mean Corpuscular HGB Conc 29.4 g/dL (31.5-36.5); Mean Corpuscular Volume 89 fL (80-100); Mean Platelet Volume 9.8 fL (9.1-12.4); Platelet Count 260 K/mm3 (150-400); RDW Coefficient Variation 17.5 % (11.7-14.2); RDW Standard Deviation 56.3 fL (35.1-46.3); Red Blood Cell Count 3.84 M/mm3 (4.30-5.90); White Blood Cell Count 8.52 K/mm3 (4.00-11.30)
[2021-12-16 05:36] LABS: Albumin, Blood 2.1 g/dL (3.4-5.0); Albumin/Globulin Ratio 0.7 (0.8-1.8); Bilirubin, Total 0.9 mg/dL (0.1-1.0); Bun/Creatinine Ratio 21.8 (12.0-20.0); Creatinine, Blood 2.57 mg/dL (0.60-1.20); Percent Saturation 9.3 % (20.0-50.0); Total Protein, Blood 5.1 g/dL (6.4-8.2)
--- NOTE | 2021-12-16 06:43 | NUR ---
SHIFT SUMMARY PATIENT DENIES PAIN AND NAUSEA. PATIENT VISIBLY SHORT OF BREATH, ABDOMINAL BREATHING. NOW ON BIPAP WITH 12L BLEED IN. PATIENT NOT TOLERATING MASK, SEE NOTES PRIOR. DR. BAKER SAW PATIENT AT 0615, WANTS PATIENT TO HAVE 1:1. CHARGE NURSE NOTIFIED, PATIENT CONSISTENTLY PULLING ON MASK, BANERJEE, AND TELE. PER DR. BAKER, CALLED TO DO CONSENT OVER THE PHONE WITH 2 PEOPLE VERIFYING. PLACED IN CHART, RADIOLOGY NOTIFIED. BANERJEE IS PATENT AND DRAINING, IRRIGATED ONCE, NO CLOTS SEEN, GOOD RETURN. HELD AM MEDS DUE TO PATIENT NOT TOLERATING BEING OFF THE BIPAP MASK. CLINICAL COORDINATOR SITTING WITH PATIENT NOW.
[2021-12-16 09:42] LABS: Automated BF WBC Count 0.318 K/mm3 (0-999)
[2021-12-16 09:53] LABS: Body Fluid WBC Count 318 /mm3 (0-999)
[2021-12-16 10:01] LABS: Glucose, Body Fluid 113 mg/dL
[2021-12-16 10:29] LABS: RBC Count, Body Fluid 70 /mm3 (0-0)
[2021-12-16 10:36] LABS: Appearance, Body Fluid Clear (Clear); Color, Body Fluid Yellow (None-Yellow); Total Cell Count, Body Fluid 100
[2021-12-16 12:21] LABS: pH, Body Fluid 8.4
--- NOTE | 2021-12-16 16:15 | NUR ---
Met with and pt today, pt is lying in bed with bipap in place. He has continued to attempt to remove it t/o the day. He has a history of dementia, and per Ivet, the dementia has significantly worsened. He sleep is becoming unregulated, at times he will stay up talking the entire night. He is also having repeat pleural effusions, and had a paracentesis today to help relieve his SOB and wet lungs. The pt has been on hospice in the past year, but he asked to discontinue the service. He stated he was tired of "having so much company stopping the house. However, pt's overall health has declined so much that pt's is no longer able to physically care for him. Spoke to Kelly Scales, who is looking into placement for him as he is a .
--- NOTE | 2021-12-16 17:46 | NUR ---
SUMMARY- PT PUT ON COMFORT CARE AROUND 1600. PT HAD BEEN ON BIPAP SINCE ABOUT 1300 AFTER DESATTING. PT CONTINUALLY TRIED TO TAKE BIPAP OFF. LEIA AGREES THAT COMFORT CARE IS WHAT HE WOULD WANT. MEDICATED WITH MOXONOL 10MG X1, PAIN IS EVIDENT WHEN MOVING PT, PT GROANS. PT HAS A WET COUGH WITH OCC PRODUCTION. APPPEARS COMFORTABLE SINCE AND HAS BEEN NAPPING, AWAKENS AND IS VERBAL, APPEARS TO BE HAVING HALLUCINATIONS OCC WHEN UP. GRABBING AT THE AIR. WILL REPORT TO NOC RN.
[2021-12-17] MEDS ORDERED: K-TAB ER20 ME1 PO (01:23)
[2021-12-17] MEDS ORDERED: XARELTO15 M1 PO (01:27)
--- NOTE | 2021-12-17 07:26 | NUR ---
SHIFT SUMMARY: PATIENT HAD GOOD EEFECT FROM ALTERNATED ROXANOL AND ATIVAN FOR PAIN AND ANXIETY. SCOPOLOMINE PATCH AND ATROPRINE GTT HAVE BEEN EFFECTIVE IN DRYING UP SECRETIONS. BANERJEE IS PATEENT FOR LARGE AMTS. OF CLEAR YELLOW URINE. PATIENT REFUSED PO FLUIDS OR WAS TO SEDATED TO SWALLOW SAFELY.
--- NOTE | 2021-12-17 11:25 | NUR ---
Comfort care visit: Leonardo is currently sleeping at the time of this visit. He appears to not be in any discomfort at this time. Spoke with nursing and received an update. Pt's visited with him this earlier this morning, she is not currently at the bedside. Pt is waiting on placement with hospice services. He is a . PC to continue to follow for symptom management and pt and family support prn.
--- NOTE | 2021-12-17 14:01 | NUR ---
Spiritual Care Attempted. Pt. is sleeping soundly and cannot be roused. Pt. is on comfort care. Requested the nurse to contact this travel registered nurse icu should the spouse return. Will remain available.
--- NOTE | 2021-12-17 16:22 | NUR ---
Spiritual Care Visit. Pt. is a comfort care Pt. and is not responsive. Spouse was present and was the focus of spiritual care. Spouse is pleasant. Facilitated a life review, and Spouse displayed evidence of strained extended and blended family relationships. Listened empathetically for some time. Matters of [place] were not the central focus of care, but the Spouse displayed evidence of being comforted by the conversation. Prayed for both the Spouse and Pt. Spouse verbalized gratitude for the Spiritual Care visit. spiritual care visit.
--- NOTE | 2021-12-17 19:21 | NUR ---
SUMMARY- PT AWAKE ALERT THIS AM, RESTLESS AND GRIMACING WITH TURNS. MEDICATED WITH ROXONOL, ORAL CARE AND SUCTION OF SECRETIONS. PT HAS FREQ MOIST COUGH, ASSIST WITH YANKAUR SUCTION, ORAL CARE FOR DRY MM. PT TURNED Q2-4, ALLOWED TO SLEEP FOR 2 LONG 4 HOUR PERIODS FROM 08-1200 AND 12-16, PT WAS RESTING VERY COMFORTABLY AND DID NOT WANT TO DISTURB. IN TO VISIT X2 TODAY, HAD A LONG VISIT WITH MONUMENT INSTALLER. SEEMS TO HAVE GOOD COPING RELATED TO PT'S IMINANT . PT MEDICATED AGAIN THIS PM WITH ROXONOL AND THAN ATIVAN 1MG IV FOR CONT RESTLESSNESS AFTER TURN. SETTELED DOWN NICELY BY 1900. REPORT TO NOC KRISTOFER.
--- NOTE | 2021-12-17 20:57 | NUR ---
COMFORT: PATIENT IS HAVING PERIODS OF APNEA UP TO 30 SECONDS IN LENGTH, RR 15. LIPS ARE CYONOTIC DURING. IN CALLED AND UPDATED ON THE CHANGES OBSERVED. WILL CALL SON AND COME INTO THE HOSPITAL.
--- NOTE | 2021-12-17 21:50 | NUR ---
PSYCH/SOCIAL: FAMILY IS AT THE BEDSIDE. EMOTIONAL SUPPORT IS GIVEN.
--- NOTE | 2021-12-17 22:35 | NUR ---
RESPIRATORY/COMFORT: PATIENT IS UNABLE TO COUGH EFFECTIVELY. UNABLE TO VCLEAR WITH ORAL SUCTIONING. ATROPINE ATROPINE GTT ARE ADMIN. PATIENT ALSO IS HAVING AGONAL BREATHING, RR 13. APNEA PERIODS OF 10 SEC. ROXANOL 10 MG IS ALSO GIVEN. EMOTIONAL SUPPORT IS GIVEN TO FAMILY
--- NOTE | 2021-12-17 23:38 | NUR ---
FINAL DISCHARGE: PATIENT PASSED AT 2300. NO RESPIRATIONS OR PULSE. AND SON ARE AT BEDSIDE. EMOTIONAL SUPPORT IS GIVEN. CHARGE NURSE, NURSING SUPPORVISOR AND DR FITZGERALD WERE NOTIFIED. BANERJEE AND POWERGLIDE ARE REMOVED. POST MORTEM CARE IS GIVEN. BELONGINGS WERE GIVEN TO FAMILY.
== END 2021-12-18 00:10 | DRG 291 ==
LOC: ER 16:12 → MEDS 22:58
PROVIDERS: Emergency Medicine; Internal Medicine; ADMIT Internal Medicine
PROC: 0T9B70Z Drainage of Bladder with Drainage Device, Via Natural or Artificial Opening (ICD-10-PCS; 2021-12-13)
PROC: 0W993ZZ Drainage of Right Pleural Cavity, Percutaneous Approach (ICD-10-PCS; principal; 2021-12-16)
PROC: 5A09357 Assistance with Respiratory Ventilation, Less than 24 Consecutive Hours, Continuous Positive Airway Pressure (ICD-10-PCS; 2021-12-16)
DX: I13.0 Hypertensive heart and chronic kidney disease with heart failure and stage 1 through stage 4 chronic kidney disease, or unspecified chronic kidney disease (principal); I50.43 Acute on chronic combined systolic (congestive) and diastolic (congestive) heart failure; J96.01 Acute respiratory failure with hypoxia; I48.20 Chronic atrial fibrillation, unspecified; N18.4 Chronic kidney disease, stage 4 (severe); K92.1 Melena; J91.8 Pleural effusion in other conditions classified elsewhere; G30.9 Alzheimer's disease, unspecified; F02.80 Dementia in other diseases classified elsewhere, unspecified severity, without behavioral disturbance, psychotic disturbance, mood disturbance, and anxiety; D63.1 Anemia in chronic kidney disease; Z51.5 Encounter for palliative care; E03.9 Hypothyroidism, unspecified; Z66 Do not resuscitate; K31.7 Polyp of stomach and duodenum; I25.10 Atherosclerotic heart disease of native coronary artery without angina pectoris; N40.1 Benign prostatic hyperplasia with lower urinary tract symptoms; M10.9 Gout, unspecified; E78.00 Pure hypercholesterolemia, unspecified; R33.8 Other retention of urine; J44.9 Chronic obstructive pulmonary disease, unspecified; C67.9 Malignant neoplasm of bladder, unspecified; Z98.890 Other specified postprocedural states; Z90.49 Acquired absence of other specified parts of digestive tract; Z87.891 Personal history of nicotine dependence; Z79.01 Long term (current) use of anticoagulants; Z79.899 Other long term (current) drug therapy; Z79.51 Long term (current) use of inhaled steroids; Z96.1 Presence of intraocular lens; Z88.5 Allergy status to narcotic agent; Z90.79 Acquired absence of other genital organ(s); Z79.890 Hormone replacement therapy
CPT/HCPCS: 32555; 36415; 51702; 51798; 71045; 74176; 80053; 81001; 82728; 82945; 83540; 83550; 83690; 83880; 83986; 84484; 85025; 85027; 85610; 85730; 86850; 86900; 86901; 87070; 87205; 89051; 93005; 93010; 94640; 94660; 94664; 94760; 94762; 96374; 99285-25; A9270; C9113; J1630; J1940; J2060; J3010